=== PATIENT | female | born 1955 | race Caucasian/White ===

== ENCOUNTER 2024-06-23 16:45 | Emergency (ER) | payer MEDICARE, SELFPAY ==
[2024-06-23] VITALS (7 sets, daily range): BP systolic 104–128; BP diastolic 61–69; PULSE 78–87; RESP 14–27; TEMP 36.4; O2SAT 93–100
--- NOTE | ~2024-06-23 | CT_ITS ---
EXAMINATION: CTA chest PE abdomen pel DATE: 06/23/2024 20:14 INDICATION: Chest pain. Shortness of breath. TECHNIQUE: Computed tomography angiography (CTA) of the chest was performed with 100 mL Omnipaque-350 intravenous contrast timed to evaluate the pulmonary arteries. Coronal maximum intensity projection 3D-reconstructions were created by the technologist. Computed tomography (CT) of the abdomen and pelv is was performed with intravenous contrast. Automated exposure control and iterative reconstruction t echnique were employed. The dose-length product was 1483.20 mGy-cm. COMPARISON: None. FINDINGS: CTA chest: The lungs demonstrate mild atelectasis. No pleural effusion. The heart size is normal. The re are coronary artery calcifications. No pericardial effusion. There is no pulmonary embolus. There is a moderate-sized sliding hiatal hernia. There is severe cervical and thoracic spondylosis. CT abdomen and pelvis: There is diffuse hepatic steatosis. There are gallstones in the gallbladder, w hich is normal in size. There is a 14 mm cyst in the spleen. The pancreas and adrenal glands are norm al. There is a 2.0 cm heterogeneous mass in right kidney. There is a 6 mm cyst in left kidney. There is diverticulosis of the colon without evidence of diverticulitis. The appendix is normal. There are no pathologically enlarged lymph nodes. There is no free intraperitoneal fluid. There is moderate lum bar spondylosis. IMPRESSION: 1. No pulmonary embolus. 2. 2.0 cm heterogeneous mass in right kidney, most likely renal cell carcinoma. Abdomen CT without an d with contrast is recommended. 3. Diffuse hepatic steatosis. 4. Moderate-sized sliding hiatal hernia. Reviewed, dictated and finalized at location A. E REFINISHER IMPRESSION: 1. No pulmonary embolus. 2. 2.0 cm heterogeneous mass in right kidney, most likely renal cell carcinoma. Abdomen CT without and with contrast is recommended. 3. Diffuse hepatic steatosis. 4. Moderate-sized sliding hiatal hernia.
--- NOTE | ~2024-06-23 | XR_ITS ---
EXAMINATION: XR chest 2V DATE: 06/23/2024 17:48 INDICATION: Chest tightness. Shortness of breath. TECHNIQUE: Frontal and lateral views of the chest were obtained. COMPARISON: None. FINDINGS: There is mild scarring at the lung apices. There is mild atelectasis in left lower lung zon e. No pleural effusion or pneumothorax. The heart size is normal. IMPRESSION: 1. Mild scarring at the lung apices and mild atelectasis in left lower lung zone. Reviewed, dictated and finalized at location A. NT COORDINATOR IMPRESSION: 1. Mild scarring at the lung apices and mild atelectasis in left lower lung zon e.
--- NOTE | 2024-06-23 16:59 | ECG_ITS ---
Test Date: 2024-06-23 17:07:05 Measurements Intervals [place] Rate: 85 P: 57 AK: 167 QRS: 2 QRSD: 80 T: 41 QT: 376 QTc: 448 Interpretive Statements SINUS RHYTHM CANNOT R/O SEPTAL INFARCT, AGE INDETERMINATE CONSIDER INFERIOR INFARCT, AGE INDETERMINATE ABNORMAL ECG No previous ECG available for comparison Electronically Signed On 06-23-2024 19:11:57 ACCOUNTING MACHINE SERVICER by Amadeo Roman D.O.
--- NOTE | 2024-06-23 17:25 | ED_ITS ---
HPI - Chest Pain General Chief Complaint: Chest Pain Stated Complaint: dizziness Time Seen by Provider: 06/23/24 17:04 Source: patient Mode of arrival: EMS Limitations: no limitations History of Present Illness HPI narrative: This is a 69-year-old female that presents to the emergency department for an episode of chest pain. Reports she was seated at home. She started to feel substernal pressure, dizziness, heart racing. Reports her heart rate was elevated for EMS. She has history of SVT. She was not given any medications, but now heart rate is in the 80s and she is feeling much better. Reports shortness of breath which seems to be at her baseline due to history of asthma. Denies fever, cough, lower extremity edema. Patient reports she had a stress test last month which was without concerning findings Related Data Allergies Allergy/AdvReac Type Severity Reaction Status Date / Time No Known Allergies Allergy Verified 06/23/24 17:20 Review of Systems 2 Review of Systems: CONSTITUTIONAL: Denies fever ENT: Denies congestion CARDIOVASCULAR: Reports chest pain. Denies edema. RESPIRATORY: Reports dyspnea. Denies cough All systems reviewed & are unremarkable except as noted in HPI and below PMFSH Past Medical History Medical History (Updated 06/23/24 @ 22:08 by Quyen Hill PA-C) History of hyperlipidemia History of hypertension History of PSVT (paroxysmal supraventricular tachycardia) Social History Social History (Updated 06/23/24 @ 17:28 by Quyen Hill PA-C) Smoking status: Never smoker Exam 2 Narrative: GENERAL: Well-appearing, well-nourished, and in no acute distress. HEAD: Normocephalic, atraumatic. EYES: EOMI. NECK: Supple. No adenopathy or masses. No JVD CHEST: Clear to auscultation. No respiratory distress. No wheezes rales or rhonchi HEART: Regular rate and rhythm. No murmur heard. Normal peripheral pulses. EXTREMITIES: Normal range of motion. No edema. SKIN: Warm, dry, no rash. NEURO: No focal deficits. Alert and oriented x3. PSYCH: Normal mood and affect Course Vital Signs Vital signs: Vital Signs Temperature 97.6 F 06/23/24 16:48 Pulse Rate 84 06/23/24 16:48 Respiratory Rate 27 H 06/23/24 16:48 Blood Pressure 113/61 06/23/24 16:48 Pulse Oximetry 93 06/23/24 16:48 Oxygen Delivery Room Air 06/23/24 16:48 Temperature 97.6 F 06/23/24 16:48 Pulse Rate 83 06/23/24 19:03 Respiratory Rate 21 H 06/23/24 19:03 Blood Pressure 126/68 06/23/24 19:03 Pulse Oximetry 100 06/23/24 19:03 Oxygen Delivery Room Air 06/23/24 17:06 MDM - Chest Pain MDM Narrative Medical decision making narrative: Patient presents to the emergency department for an episode chest discomfort, heart racing. Heart rate was reportedly in the 160s upon EMS arrival which they believed was AFib with RVR. She was not given any medications. Upon arrival to the ER she was in normal sinus rhythm. She has remained in this throughout the entirety of her stay. Other vitals have also been stable. Cbc and metabolic panel without concerning findings. EKG without acute ST changes in her baseline and 3 hour troponin are negative. D-dimer was elevated, CTA of the chest obtained. No PE or acute cardiopulmonary abnormality. She does have a 2 cm mass in the right kidney, recommend further evaluation with CT abdomen and pelvis with and without. Her heart score is elevated, although I do feel her symptoms tonight were likely due to tachy arrhythmia. Once again patient has been in normal sinus rhythm throughout the entirety of her stay in the ER. She reports she had a stress test just last month that was negative for any ischemic changes. Patient was updated on her workup and agrees with plan of care. She is to follow up with her semiconductor wafers tester and primary doctor for further evaluation and management. She was given warnings to return to the ER Differential Diagnosis Differential diagnosis: Likely stable angina and other (Arrhythmia, PE) Lab Data Attestation: I reviewed the patient's lab results. 06/23/24 17:18 06/23/24 17:18 Labs: Lab Results 06/23/24 06/23/24 Range/Units 17:18 21:03 WBC 8.6 (4.5-10.0) K/mm3 RBC 5.23 (4.2-5.4) M/mm3 Hgb 14.9 (12.0-15.0) g/dL Hct 44.8 (37.0-47.0) % MCV 85.7 (80-100) fl MCH 28.5 (26-34) pg MCHC 33.3 (32-36) g/dl RDW 13.2 (11.5-14.5) % Plt Count 298 (150-375) k/mm3 MPV 10.0 (7.4-10.4) fl Immature Gran % (Auto) 0.2 (0-0.5) % Neut % (Auto) 61.4 (45.5-73.1) % Lymph % (Auto) 26.6 (18.3-44.2) % [place] % (Auto) 7.0 (2.6-8.5) % Eos % (Auto) 3.9 (0-4.4) % Baso % (Auto) 0.9 (0.2-1.2) % Lymph # (Auto) 2.28 (0.9-3.2) K/mm3 [place] # (Auto) 0.6 (0.1-0.6) K/mm3 Eos # (Auto) 0.3 (0-0.3) K/mm3 Baso # (Auto) 0.1 (0.0-0.1) K/mm3 Abs Immat Gran (auto) 0.02 (0.00-0.031) K/mm3 Absolute Neuts (auto) 5.3 (1.3-6.7) K/mm3 Absolute Nucleated RBC 0.000 (0.0-0.012) K/mm3 Nucleated RBC % 0.0 (0.0-0.2) % PT 12.4 (11.1-14.7) Seconds INR 0.9 APTT 25.3 (22.3-36.8) Seconds D-Dimer 0.49 H (<0.48) ug/mL Sodium 139 (137-145) mmol/L Potassium 3.8 (3.4-5.0) mmol/L Chloride 104 (98-107) mmol/L Carbon Dioxide 23 (22-30) mmol/L Anion Gap 12 (4-12) mmol/L BUN 16 (7-17) mg/dL Creatinine 0.56 L (0.7-1.0) mg/dL Estim Creat Clear Calc 80 ml/min Estimated GFR > 60 (59 - ) Glucose 100 (65-110) mg/dL Calcium 9.2 (8.4-10.2) mg/dL Total Bilirubin 0.6 (0.2-1.3) mg/dL AST 25 (14-36) U/L ALT 30 (6-35) U/L Alkaline Phosphatase 89 (38-126) U/L Troponin I < 0.012 < 0.012 (0.000-0.034) ng/mL Total Protein 7.0 (6.3-8.2) g/dL Albumin 4.0 (3.5-5.1) g/dL Lipase 74 (23-300) U/L Imaging Data Radiologist's impression: ITS Impressions Chest X-Ray 06/23/24 17:48 IMPRESSION: 1. Mild scarring at the lung apices and mild atelectasis in left lower lung zone. Chest/Abdomen/Pelvis CTA 06/23/24 20:15 IMPRESSION: 1. No pulmonary embolus. 2. 2.0 cm heterogeneous mass in right kidney, most likely renal cell carcinoma. Abdomen CT without and with contrast is recommended. 3. Diffuse hepatic steatosis. 4. Moderate-sized sliding hiatal hernia. ECG Data EKG #1: ECG completion date: 06/23/24 EKG Interpretation: normal rate, sinus rhythm, no ST changes and normal QT Critical Care Time Critical Care Time Critical Care Time: No Discharge Plan Discharge Clinical Impression: Kidney mass Chest pain Qualifiers: Chest pain type: unspecified Qualified Code(s): R07.9 - Chest pain, unspecified Patient Disposition: Home, Self-Care Condition: Improved Instructions: Chest Pain (ED) Additional Instructions: Return to the emergency department if you experience fever, chest pain, shortness of breath, your heart is racing, you pass out, or any other symptoms that are concerning to you. Your blood work, EKG and imaging were largely re-assuring today. We did incidentally find a mass on your right kidney. The radiologist is recommending further evaluation with a CT abdomen pelvis without and with contrast Follow up with your primary care doctor and semiconductor wafers tester for further evaluation/management Patient Language: Welsh Follow-up/Referrals: PHYSICIAN NOT ON STAFF,NONSTAFF [Non-Staff] - Quality HEART score for chest pain patients History: slightly suspicious ECG: normal Age: > or = to 65 years Risk factors: > or = to 3 risk factors of atherosclerotic disease Troponin: < or = to 1x normal limit Heart score: 4
[2024-06-23 17:27] LABS: Basophils Absolute Auto 0.1 K/mm3 (0.0-0.1); Basophils Percent Auto 0.9 % (0.2-1.2); Eosinophils Absolute Auto 0.3 K/mm3 (0-0.3); Eosinophils Percent Auto 3.9 % (0-4.4); Hematocrit 44.8 % (37.0-47.0); Hemoglobin 14.9 g/dL (12.0-15.0); Immature Granulocyte Absolute 0.02 K/mm3 (0.00-0.031); Immature Granulocyte Percent A 0.2 % (0-0.5); Lymphocytes Absolute Auto 2.28 K/mm3 (0.9-3.2); Lymphocytes Percent Auto 26.6 % (18.3-44.2); Mean Corpuscular HGB Conc 33.3 g/dl (32-36); Mean Corpuscular Hemoglobin 28.5 pg (26-34); Mean Corpuscular Volume 85.7 fl (80-100); Monocytes Absolute Auto 0.6 K/mm3 (0.1-0.6); Neutrophils Absolute Auto 5.3 K/mm3 (1.3-6.7); Neutrophils Percent Auto 61.4 % (45.5-73.1); Platelet Count Result 298 k/mm3 (150-375); Red Blood Count 5.23 M/mm3 (4.2-5.4); Red Cell Distribution Width 13.2 % (11.5-14.5); White Blood Count 8.6 K/mm3 (4.5-10.0)
--- OUTSIDE RECORDS SUMMARY | 2024-06-23 17:35 | XMS_ITS | Data Portability ---
Author Organization [facility], [address] ([place]) Address [address]th [place] [address] Assessment Encounter Date Assessment Date Assessment LastModified by Organization Details LastModified Time 10/06/2023 10/06/2023 The patient returned for a hearing aid check appointment; end of trial period. She reports noticeable benefit with her hearing aids. She did forget them at home today. However, I reviewed how to replace wax filters and she was able to do so on her own with a demo hearing aid. She will return in 4 months or sooner if needed. [email or web address] Not available 10/06/2023 14:21:59 11/12/2023 11/12/2023 The patient returns for hearing aid check appointment. I reviewed how to replace wax filters and she was able to do so on her own. She was given her own packet. She will return in 4 months or sooner if needed. [email or web address] Not available 11/12/2023 15:52:25 03/22/2024 03/22/2024 Jennifer has trivial remote smoking history and BMI ~37 kg/m She is currently undergoing a thorough workup by her new general matcher for her shortness of breath. Continue Breo 200. Albuterol for rescue Montelukast 10 mg to use at nighttime. Regular exercise and weight loss will help improve the severity of her sleep apnea. Decrease CPAP to 6 CWP for comfort. She will be following with her new general matcher in [place]. She will call us if she needs anything. [email or web address] Not available 03/22/2024 10:08:42 Plan of Treatment Reminders Order Date Submit Date Provider Last Modified By Organization Details Last Modified Time Details Appointments None recorded. Lab None recorded. Referral None recorded. Procedures None recorded. Surgeries None recorded. Imaging None recorded. Medication Orders Breo Ellipta 200 mcg-25 mcg/dose powder for inhalation 2023 024 [id number], [address] [place], [place], [id number], 09:26:45 Patient TargetsNo targets recorded. Patient InstructionsNo instructions recorded. Reason for Referral None Reported. Results Created Date Observation Date Name Description Value Unit Range Abnormal Flag Note LastModifiedBy Organization Detail LastModifiedTime 09/15/19 24 09/16/2023 surgi azalia patho logy study tissue exam biopsy [facility] [address] [address] Ph. Joe Lara MD, PhD, Medic al Direc tor REGINA WALL MD Patie nt: DANETTE OLIVARES e ID: [id number] Repor t Statu s: Final :1 1954 Case #: [id number] Age: 68 Y Gende r: F Date Colle cted: 09/14 MRN # : [id number] Date Recei tashia: 09/14 Repor barbi Date: 09/15 FINAL DIAGN OSIS: Colon , ascen ding polyp s, biops y : - Fragm ents of tubul ar adeno ma Elect neris tabares Verif ied by Lizbet Gong MD Elect neris phipps 09/15 15:00 SPECI MEN SOURC E: Colon , ascen ding polyp s, biops y GROSS DESCR IPTIO N: The speci men conta iner( s) and requi sitio n have the same patie nt name. Recei tashia in 10% neutr al buffe red forma sean for forma sean-f ixed paraf fin-e mbedd ed secti ons label ed A, ascen ding colon polyp s are two fragm ents of yello w-deluna soft tissu e that are 0.4 and 0.9 cm in great est dimen abel. The speci men is entir cherry submi tted for histo logic study in one casse tte. CLINI [facility] INFOR BERNICE N: Histo ry of colon polyp s. Not Available Oh Only - Oh Laboratory [facility] [address], [address], 09/16/2023 16:02:23 12/15/19 24 06/08/2022 imagi ng/di agnos tic resul t No observ ation record ed. Not Available 12/15/2023 10:28:11 12/15/19 24 07/13/2022 imagi ng/di agnos tic resul t No observ ation record ed. Not Available 12/15/2023 10:28:15 12/15/19 24 07/13/2022 imagi ng/di agnos tic resul t No observ ation record ed. Not Available 12/15/2023 10:28:17 12/15/19 24 08/12/2022 imagi ng/di agnos tic resul t No observ ation record ed. Not Available 12/15/2023 10:28:18 12/15/19 24 10/13/2022 imagi ng/di agnos tic resul t No observ ation record ed. Not Available 12/15/2023 10:28:18 12/15/19 24 10/13/2022 imagi ng/di agnos tic resul t No observ ation record ed. Not Available 12/15/2023 10:28:20 01/18/20 24 09/14/2022 imagi ng/di agnos tic resul t No observ ation record ed. Not Available 01/18/2024 00:00:54 02/29/20 24 07/22/2023 imagi ng/di agnos tic resul t No observ ation record ed. [email or web address] Not Available 21:14:01 02/29/20 24 07/25/2023 imagi ng/di agnos tic resul t No observ [facility] record ed. [email or web address] Not Available 21:14:03 Result Notes None recorded. Problems Name Problem SNOMED Code Status Onset Date Resolution Date Notes Provider Name and Address Organization Details Recorded Time Environment al allergy 936969035 Active 2023 Meenu Tobinty null, [facility] 4 08:47:09 Hyperlipide peng 28216737 Active 2023 [facility] 09:14:33 Obstructive sleep apnea syndrome 18649076 Active 2023 Tory Alas APRN, [employer] [address] [place] [address], [phone], [facility] 4 09:21:54 Asthma 618040982 Active 2023 Melinda Babb [facility] 4 11:31:48 Daytime somnolence 629408407134 Active 2023 Tory Alas APRN, [employer] [address] [place] [address], [phone], [facility] 4 09:21:58 Mild intermitten t asthma 124115805 Active 2023 Tory Alas APRN, [employer] [address] [place] [address], [phone], [facility] 4 09:22:02 Body mass index 30+ - obesity 673795968 Active 2023 Carson luna [facility] 4 12:21:26 Sensorineur al hearing loss of bilateral ears 782647965 Active 2023 [facility] 4 22:57:37 Problem Notes None recorded. Procedures Surgical History None recorded. Imaging Results Imaging Date Name Status LastModified by Organ [facility] Details LastModified Time 06/08/2022 imaging/diag nostic result completed Information not available 12/15/2023 10:28:11 07/13/2022 imaging/diag nostic result completed Information not available 12/15/2023 10:28:15 07/13/2022 imaging/diag nostic result completed Information not available 12/15/2023 10:28:17 08/12/2022 imaging/diag nostic result completed Information not available 12/15/2023 10:28:18 10/13/2022 imaging/diag nostic result completed Information not available 12/15/2023 10:28:18 10/13/2022 imaging/diag nostic result completed Information not available 12/15/2023 10:28:20 09/14/2022 imaging/diag nostic result completed Information not available 01/18/2024 00:00:54 07/22/2023 imaging/diag nostic result completed Information not available 02/29/2024 21:14:01 07/25/2023 imaging/diag nostic result completed Information not available 02/29/2024 21:14:03 Procedure Notes None recorded. Medical Equipment None Reported. Allergies Allergen ID Allergen Name Allergen Category Reaction Reaction Severity Criticality Documentation Date Start Date Code Code System Note Provider Name and Address Organization Details Recorded Time 7228233 Streptoco ccus pneumonia e type 1 capsular polysacch aride antigen medicatio n Not available Not available Not available 06/02/20232014 81459 0 RxNorm Not Available Not Available Not Available 3098174 Prevnar 13 medicatio n Not available Not available Not available 06/02/20232018 35377 1 RxNorm Not Available Not Available Not Available Medications Name Sig Start Date Stop Date Status Note LastModified by Organization Details LastModified Time atorvastatin 80 mg tablet Take 1 tablet every day by oral route for 90 days. active Not Available Not Available No t Available clonidine HCl 0.1 mg tablet TAKE 1/2 TABLET BY MOUTH AT BEDTIME active Not Available Not Available No t Available ibuprofen 800 mg tablet TAKE 1 TABLET BY MOUTH EVERY 8 HOURS WITH FOOD NEEDED active Not Available Not Available No t Available Claritin 10 mg tablet Take 1 tablet every day by oral route. active Not Available Not Available No t Available famotidine 40 mg tablet TAKE 1 TABLET BY MOUTH AT BEDTIME active Not Available Not Available No t Available aspirin 81 mg tablet,delay ed release take 1 tablet by mouth once daily 2023 active Not Available Not Available Not Avai lable triamcinolon e acetonide 0.1 % topical ointment APPLY TOPICALLY TO THE AFFECTED AREA TWICE DAILY FOR 7 DAYS active Not Available Not Available No t Available montelukast 10 mg tablet active Not Available Not Available Not Available albuterol sulfate HFA 90 mcg/actuatio n aerosol inhaler Inhale 2 puffs every 4 hours by inhalation route as needed. active Not Available Not Available No t Available escitalopram 20 mg tablet TAKE 2 TABLETS BY MOUTH DAILY active Not Available Not Available Not Available Fish Oil capsule Take by oral route. active Not Available Not Available Not Available aripiprazole 5 mg tablet TAKE 1 TABLET BY MOUTH DAILY active Not Available Not Available Not Available fenofibrate micronized 48 mg tablet Take 1 tablet every day by oral route. active Not Available Not Available No t Available Calcium 600 + D(3) 600 mg-5 mcg (200 unit) tablet Take 1 tablet every day by oral route. active Not Available Not Available No t Available fenofibrate nanocrystall ized 48 mg tablet take 1 tablet by mouth once daily active Not Available Not Available No t Available omeprazole 20 mg tablet,delay ed release Take 2 tablets every day by oral route. active Not Available Not Available No t Available B-12 DOTS 500 mcg tablet Take by oral route. active Not Available Not Available Not Available Zyrtec 10 mg capsule Take 1 capsule every day by oral route. active Not Available Not Available No t Available sodium,potas sium,mag sulfates 17.5 gram-3.13 gram-1.6 gram oral soln MIX AND DRINK DIRECTED active Not Available Not Available No t Available Breo Ellipta 200 mcg-25 mcg/dose powder for inhalation Inhale 1 puff every day by inhalation route for 30 days. 2023 active Not Available Not Available Not Avai lable Flonase Sensimist 27.5 mcg/actuatio n nasal spray,suspen abel Take 2 sprays every day by nasal route. active Not Available Not Available No t Available Vitals Date Recorded Heart rate Heart rate Body mass index (BMI) Body mass index (BMI) Body mass index (BMI) Respiratory rate Respiratory rate Body weight Body weight Body weight Body height Body height Body height Body temperature Body temperature Oxygen saturation Oxygen saturation in Arterial blood by Pulse oximetry Oxygen saturation Oxygen saturation in Arterial blood by Pulse oximetry Systolic blood pressure Diastolic blood pressure Systolic blood pressure Diastolic blood pressure Provider Name and Address Organization Details Last Updated DateTime 83 /min 83 /min 36.55 kg/m2 38.37 kg/m2 38.37 kg/m2 16 /min 16 /min 18503.5 503 g 12782.2 1897 g 77345.5 503 g 149.86 cm 149.86 cm 149.86 cm 96.6 [degF] 96.6 [degF] 97 % 97 % 97 % 97 % 128 mm[Hg] 70 mm[Hg] 128 mm[Hg] 70 mm[Hg] Not Available [facility] 06:23:25 Date Recorded Body mass index (BMI) Body weight Systolic blood pressure Diastolic blood pressure Provider Name and Address Organization Details Last Updated DateTime 10/13/2023 38.17 kg/m2 34792.957 93 g 116 mm[Hg] 78 mm[Hg] Not Available Critical [facility] hospital 02/09/2024 06:23:25 Social History None recorded. Functional Status None recorded. Mental Status None recorded. Family History Nothing Reported. Medical History No medical history recorded. Gynecological HistoryNo gynecological history recorded. Obstetrics History GPAL:G 0 P 0 0 0 0 Past Encounters Encounter ID Performer Location Encounter Start Date Encounter Closed Date Diagnosis/Indication Diagnosis SNOMED-CT Code Diagnosis ICD10 Code Diagnosis Note [id number] Joe Nava MD [facility] S [address] [place] [phone] 09/15/2023 09:20:05 11/12/2023 04:02:33 [id number] Nirmala Izaguirre [facility] [address] [facility]4th [place] [address] 10/06/2023 13:47:38 10/06/2023 14:13:04 Sensorineural hearing loss of bilateral ears 030045384 H90.3 [id number] Nirmala Izaguirre [facility] [address] [place] [address] 11/12/2023 15:13:56 11/12/2023 16:10:12 Sensorineural hearing loss of bilateral ears 793537382 H90.3 [id number] Tory Alas APRN, BUSINESS SUPPORT [facility] [address] [place] [address] 03/22/2024 09:20:00 03/22/2024 11:42:56 Obstructive sleep apnea syndrome 95392111 G47.33 Daytime somnolence 75451 25728 00 R40.0 Mild inter mittent asthma 507736813 J45.20 Body mass index 30+ - obesity 085543488 E66.9 Z68.37 Health Concerns Section Related Observation LastModified by Organization Detai ls LastModified Time None Recorded Concern Status LastModified by Organization Details LastModified Time None Recorded Advance Directives Directive None Recorded Payers Encounter Date Sequence Insurance Name Policy Number Policy Tyson Covered Member ID Tyson Member ID Guarantor Name 09/15/2023 1 [employer] (MEDICARE REPLACEMENT PPO) [id number] 1 Danette Santiago [place]ves [id number] Danette Santiago [place] 10/06/2023 1 [employer] (MEDICARE REPLACEMENT PPO) [id number] Danette Santiago Germain [id number] Danette Santiago [place] 11/12/2023 1 [employer] (MEDICARE REPLACEMENT PPO) [id number] Danette Santiago [place]ves [id number] Danette Groves 03/22/2024 1 [employer] (MEDICARE REPLACEMENT PPO) [id number] 1 Danette Sánchezews [id number] Danette Groves Notes Date Note Type Note Provider Name and Address Organization Details Recorded Time 09/15/2023 text/html [facility] PRE-ANEST HETIC EVALUATIONReported bypatient.Reason for Visit:PROPOSED PROCEDURE: Colonoscopy; SURGEON: Shelia; PREOP DIAGNOSIS: Polyp of colon Review of Systems General:Exercise tolerance moderate; Denies SOB, PARRY, PND; Denies chest pain or chest tightness; Obesity Cardiac:Hyperlipidemia; Mild Coronary artery disease ; Negative stress test (Nuc stress perf 04/23 perf scan); Cardiac Testing:[facility] 06/25 mild CAD / normal EF Pulmonary:Obstructive sleep apnea with CPAP at HS GI:Dysphagia Pysch:Anxiety Prior Anesthetic Complication:no history of anesthesia complications Family Anesthetic Hx:no history of anesthesia complications Testing/ResultsBMP/CMP Date: 07/16/2423; BUN results: 14; Creatine results: .7; Potassium results: 4.4 Physical Exam: AirwayMP II; high arched palate / small mouth TeethWNL NeckWNL CardiovascularRegular rate and rhythm RespiratoryClear to auscultation bilaterally GastrointestinalNPO status >6 hrs solids, >2 hrs clear liquids Vital Signs:Vital signs reviewed. Please refer to nursing preop note for values Assessment:ASA PS: II Plan:MAC Discussion:I have discussed with the patient the anesthetic plan, alternatives, pertinent risks, and complications; including but not limited to PONV, dental injury, sore throat, TX, stroke, etc. All questions were answered. Patient/patient's guardian verbalize(s) understanding and agree(s) to proceed. Taylor Ahn [facility] 09/15/2023 10:56:25 03/22/2024 text/html Danette is here to day for follow-up of obstructive sleep apnea and asthma. She recently moved down to [place]. She is going to be following with a new general matcher who will be managing her sleep apnea and asthma. She is needing refills on Breo. She is currently undergoing a workup for worsening shortness of breath. She denies any chest pain or palpitations. No shortness of breath at rest. Her shortness of breath is with exertional dyspnea. She would like her CPAP pressure to be decreased.PMH and PSH: Obesity, hiatal hernia, generalized anxiety disorder, depression, Schatzki's ring, , D&C and ORIF of forearm fracture. Left heart catheterization.Family history: Father had brain cancer, mother had asthma, family history of colon cancer and hypertension.Social history: Trivial remote smoking history. and lives independently. She has 1 adult daughter. Tory Alas APRN, [employer] [address] [place] [address], [phone], [place] [facility] 03/23/2024 11:24:56 OBGyn Episode No OBEpisode recorded.
--- OUTSIDE RECORDS SUMMARY | 2024-06-23 17:35 | XMS_ITS | Clinical Summary ---
Author Organization [facility] Address [facility] [place] [address] Care Team Providers Care Lap Grinder Name Role Phone Ramona Cruz MD Primary Care Provider [phone] Julian Delvalle MD Unavailable [phone] Tyler Phillips MD Unavailable [phone] Allergies Active Allergy Reactions Criticality Noted Date Comments Pneumococcal Vaccine Hives 02/14/2024 Medications omega-3 fatty acid (FISH OIL) 500 MG capsule Take 1 capsule (500 mg total) by mouth daily. Active Cyanocobalamin (VITAMIN B-12 OR) Take 1 chewable tablet by mouth daily. Active vitamin D3, cholecalciferol, 125 mcg capsule Take 1 mcg by mouth daily. Active ASPIRIN LOW DOSE 81 MG tablet Take 1 tablet (81 mg total) by mouth daily. Active furosemide (LASIX) 20 MG tablet Take 1 tablet (20 mg total) by mouth daily. 30 tablet 2 4 Active atorvastatin (LIPITOR) 80 MG tabletIndications:M ixed hyperlipidemia Take 1 tablet (80 mg total) by mouth daily. 90 tablet 3 4 Active cloNIDine (CATAPRES) 0.1 MG tabletIndications:P rimary hypertension Take 1 tablet (0.1 mg total) by mouth nightly at bedtime. Patient takes 1/2 tablet 90 tablet 3 4 Active fenofibrate (TRICOR) 48 MG tabletIndications:M ixed hyperlipidemia Take 1 tablet (48 mg total) by mouth daily. 90 tablet 1 4 Active ARIPiprazole (ABILIFY) 5 MG tabletIndications:R ecurrent major depressive disorder, in full remission (CMS/HCC) Take 1 tablet (5 mg total) by mouth daily. 90 tablet 3 4 Active escitalopram (LEXAPRO) 20 MG tabletIndications:R ecurrent major depressive disorder, in full remission (CMS/HCC) Take 1 tablet (20 mg total) by mouth daily. 90 tablet 3 4 Active famotidine (PEPCID) 40 MG tabletIndications:G astroesophageal reflux disease, unspecified whether esophagitis present Take 1 tablet (40 mg total) by mouth nightly at bedtime. 90 tablet 3 4 Active BREO ELLIPTA 200-25 MCG/ACT inhalerIndications: Mild intermittent asthma, unspecified whether complicated ([facility]/HCC) Inhale 1 puff into the lungs daily. 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 04/10/2024 SVT (supraventricular tachycardia) ([facility]/HCC HHS/ HCC) 04/05/2024 Daytime somnolence 03/21/2024 Mild intermittent asthma ([facility]/HCC) 03/21/2024 Asthma ([facility]/HCC) 03/20/2024 Hyperlipidemia 01/11/2024 Obstructive sleep apnea syndrome 01/11/2024 Environmental allergies 12/20/2023 Sensorineural hearing loss (SNHL) of both ears 0 09/02/2023 Encounters Date Type Department Care Team Description 06/07/2024 Telephone [facility] Medical Group Multispecialty Care - [facility] [address], [address] [place] [address] Julian Delvalle MD Results 05/29/2024 7:43 PM POULTRY TENDER - 05/29/2024 11:59 PM [facility] Hospital Encounter [facility] [address] [place] [address] Julian Delvalle MD Obstructive Sleep Apnea Discharge Disposition: Home or Self Care (Routine Discharge) 05/29/2024 3:15 PM POULTRY TENDER Office Visit [facility] [address] [place] [address] yTler Phillips MD Shortness Of Breath (1mo) 05/29/2024 Travel 05/19/2024 Telephone [facility] Multispecialty Care - [facility] [address] [place] [phone] Julian Delvalle MD Results 05/18/2024 MyChart [facility] [address] [place] [phone] Julian Delvalle MD Pulmonary function test 05/15/2024 3:36 PM POULTRY TENDER - 05/15/2024 11:59 PM POULTRY TENDER Hospital Encounter [facility] Respiratory Therapy [place] [address] Julian Delvalle MD Discharge Disposition: Home or Self Care (Routine Discharge) 05/15/2024 Scan What They Like HEALTH INFO SRVCS Scanned, [facility] PFT (SCAN) 05/15/2024 Travel 05/01/2024 Telephone [facility], [address] [place] [address] Tammy Grady FNP Results 2024 9:53 AM POULTRY TENDER - 2024 11:59 PM POULTRY TENDER Hospital Encounter [facility] [place] [address] Tammy Grady FNP Discharge Disposition: Home or Self Care (Routine Discharge) 2024 7:28 AM POULTRY TENDER - 2024 9:52 AM POULTRY TENDER Hospital Encounter [facility] Nuclear Medicine [place] [address] Tammy Grady FNP Discharge Disposition: Home or Self Care (Routine Discharge) 2024 Travel 04/17/2024 11:20 AM POULTRY TENDER Office Visit [facility] Family Medicine - [place] [address], [address] [place] [phone] Ramona Cruz MD TCM (TCM follow up from [facility] on 04/05/2024 for SVT.) 04/17/2024 9:00 AM POULTRY TENDER Office Visit [facility] [facility], [address] [address] Ariadne Santiago MD Monteleone, Amanda, PA-C Supraventricular Tachycardia (Discuss ablation) 04/17/2024 Abstract [facility] [facility], [address] [address] Nikia Ryder CMA 04/17/2024 Travel 04/12/2024 10:15 AM POULTRY TENDER Office Visit [facility] [facility], [address] [address] Tammy Grady FNP Shortness Of Breath ; Follow Up 04/12/2024 Travel 04/12/2024 Telephone [facility], [address] [address] Tammy Grady FNP Information ([place], [place]) 04/07/2024 Patient Outreach [facility] Family Medicine - [place] [address], [address] [place] [phone] Carmelita Acosta, ANÍBAL TCM ([facility] 04/04-04/05) 04/05/2024 Telephone [facility] Family Medicine - [place] [address], [address] [place] [address] Ramona Cruz MD TCM 04/05/2024 Patient Outreach [facility] Family Medicine - [place] [address], [address] [place] [address] Tomasa Rodriguez, RN Hospital Follow Up 04/04/2024 10:45 PM POULTRY TENDER - 04/05/2024 12:35 PM POULTRY TENDER Emergency [facility] [place] [address] Vianey Blunt MD Elayyan, Ibrahim B, MD Duenas, Vincent J, MD Chest Pain; Shortness Of Breath (/) Discharge Disposition: Home or Self Care (Routine Discharge) 04/04/2024 Scan [employer] SRVCS Scanned, [facility] 04/04/2024 Travel 04/04/2024 Telephone [facility] Multispecialty Care - [facility] [address] [facility] [place] [phone] Julian Delvalle MD Results 03/28/2024 [facility]phone [facility] [address] [place] [phone] Julian Delvalle MD Results 03/24/2024 Telephone [facility], [address] [place] [address] Tammy Grady FNP Results 03/23/2024 3:52 PM POULTRY TENDER - 03/23/2024 11:59 PM POULTRY TENDER Hospital Encounter [facility] [place] [address] Tyler Phillips MD Discharge Disposition: Home or Self Care (Routine Discharge) 03/23/2024 3:51 PM POULTRY TENDER Hospital Encounter [facility] [address] Julian Delvalle MD Discharge Disposition: Home or Self Care (Routine Discharge) 03/23/2024 9:59 AM POULTRY TENDER - 03/23/2024 3:50 PM POULTRY TENDER Hospital Encounter [facility] [place] [address] Julian Delvalle MD Discharge Disposition: Home or Self Care (Routine Discharge) 03/23/2024 Travel from Last 3 Months Immunizations Name Administration Dates Next Due Abrysvo Respiratory Syncytia l Virus (RSV) 0.5 mL, PF 01/18/2023 Fluzone High Dose (IIV, trivalent, 0.5mL) 2023,01/06/2023 Influenza Adult (Generic) 02/20/2022 MODERNA COVID-19 BIVALENT (1 2+), MRNA, LNP-S, PF 01/22/2022 PFIZER COVID-19 (12+) MRNA, LNP-S, PF, ENDER-SUCROSE, 30 MCG/0.3 ML (COMIRNATY) 01/21/2024,07/22/2023,01/18/2023 PFIZER COVID-19 (ORIGINAL FO RMULATION, PURPLE CAP) mRNA, LNP-S, PF, 30 MCG/0.3 ML DOSE 03/05/2021,07/31/2020,07/10/2020 Pneumococcal (Prevnar 13) 04/02/2015 Shingrix 03/18/2023,01/18/2023 Tdap (Generic) 10/30/2022,04/02/2015 Family History Medical History Relation Comments Depression Brother Cancer Father Vision loss Father Stroke Maternal Grandfather Arthritis Mother Asthma Mother Heart Disease Mother Miscarriages / Stillbirths Mother Vision loss Mother Relation Status Comments Brother Father Maternal Grandfather Mother Social History Tobacco Use Types Packs/Day Years Used Date Smoking Tobacco: Former Cigarettes Q uit: 05/03/1987 Passive Smoke Exposure: Past Tobacco Cessation:Counseling Given: Not Answered Alcohol Use Standard Drinks/Week Comments Not Currently 0 (1 standard drink = 0.6 oz pur e alcohol) [facility] Utilities Answer Date Recorded In the past 12 months has th e electric, gas, oil, or water company threatened to shut off services in your home? No 04/05/2024 Humiliation, Afraid, Rape, and Kick questionnair e Answer Date Recorded Within the last year, have y ou been afraid of your partner or ex-partner? No 04/05/2024 Within the last year, have y ou been humiliated or emotionally abused in other ways by your partner or ex-partner? No Within the last year, have y ou been kicked, hit, slapped, or otherwise physically hurt by your partner or ex-partner? No 04/05/2024 Within the last year, have y ou been raped or forced to have any kind of sexual activity by your partner or ex-partner? No 04/05/2024 Overall Financial Resource Strain (CARDIA) Answe r Date Recorded How hard is it for you to pa y for the very basics like food, housing, medical care, and heating? Not hard at all 04/05/2024 PHQ-2 Answer Date Recorded Patient Health Questionnaire-2 Score 0 02/14/2024 Hunger Vital Sign Answer Date Recorded Within the past 12 months, y ou worried that your food would run out before you got the money to buy more. Never true 04/05/20 24 Within the past 12 months, t he food you bought just didn't last and you didn't have money to get more. Never true 04/05/2024 PRAPARE - Transportation Answer Date Re corded In the past 12 months, has l ack of transportation kept you from medical appointments or from getting medications? No 08/2023 In the past 12 months, has l ack of transportation kept you from meetings, work, or from getting things needed for daily living? No 04/05/2024 Housing Stability Vital Sign Answer Shade e Recorded In the last 12 months, was t here a time when you were not able to pay the mortgage or rent on time? No 04/05/2024 In the past 12 months, how m any times have you moved where you were living? 0 04/05/2024 At any time in the past 12 m [facility], were you homeless or living in a longterm (including now)? No 04/05/2024 Comments No Sex and Gender Information Value Date Recorded Sex Assigned at Female 05/29/2024 7:43 PM POULTRY TENDER Legal Sex Female 1:38 PM CDT Gender Identity Not on file Sexual Orientation Not on file Last Filed Vital Signs Vital Sign Reading Time Taken Comments Blood Pressure 136/72 05/29/2024 3:08 PM POULTRY TENDER Pulse 93 05/29/2024 3:08 PM POULTRY TENDER Temperature 36.9 C (98.4 F) 04/17/2024 11:52 AM POULTRY TENDER Respiratory Rate 16 04/17/2024 11:52 AM POULTRY TENDER Oxygen Saturation 93% 05/29/2024 3:08 PM POULTRY TENDER Inhaled Oxygen Concentration - - Weight 86.3 kg (190 lb 3.2 oz) 05/29/2024 3:08 P M POULTRY TENDER Height 152.4 cm (5') 05/29/2024 3:08 PM POULTRY TENDER Body Mass Index 37.15 05/29/2024 3:08 PM POULTRY TENDER Plan of Treatment Upcoming Encounters Date Type Department Care Team (Late st Contact Info) Description 07/14/2024 10:00 AM CDT Office Visit [facility] Medical Group Multispecialty Care - [facility] [address] [place] [phone] Julian Delvalle MD [address] [facility] [address] [place] [address] 07/21/2024 11:20 AM CDT Office Visit [facility] Medical [facility] Family Medicine - [place] [facility] [address] [facility] [address], [address] [place] [phone] Ramona Cruz MD [address] [place] [address] 10/23/2024 9:45 AM CDT Office Visit [facility] [address] [facility], [address] [place] [address] Ariadne Santiago MD [address] [facility]. [address] [place] [address] 11/27/2024 11:00 AM CDT Office Visit [facility] [address] [place] [address] Tyler Phillips MD [address] [facility] [place] [address] Health Maintenance Due Date Last Done Comments Colorectal Cancer Screening Colonoscopy (10 Years) 1955 Hepatitis C 1972 Mammogram Screening 1994 Annual Medicare Wellness Visit 2019 Dexa Scan (General) 2019 PHQ-2 (Physician [place]) 05/03/2024 02/14/2024 DTaP, Tdap and Td Vaccines (3 - Td or Tdap) 10/30/2032 10/30/2022, 04/02/2015 RSV Immunization or 60+ Years Completed 01/18/2023 Zoster Vaccines Completed 03/18/2023, 01/18/2023 COVID-19 Vaccine Completed 01/21/2024, , 01/18/2023, Additional history exists Influenza Adult Completed 01/21/2024, 10/2022, 02/20/2022 Meningococcal B Vaccine Aged Out No l onger eligible based on patient's age to complete this topic Meningococcal Vaccine Aged Out No [facility] eligible based on patient's age to complete this topic RSV Immunizations Under 20 Months Aged Out No longer eligible based on patient's age to complete this topic Goals Goal Patient Goal Type Associated Problems Recent Progress Patient-Stated? Author Health - patient able to perform ADLs independently Lifestyle Randal Glover, supervisor patching Procedure Name Priority Date/Time Associated Diagnosis Comments POLYSOMNOGRAPHY 4 OR MORE PARAMETERS WITH CPAP Routine 05/29/2024 8:00 PM POULTRY TENDER KARMA (obstructive sleep apnea) HOME O2 EVAL Routine 05/19/2024 10:41 AM POULTRY TENDER Mild intermittent asthma without complication (HHS/HCC) PULMONARY FUNCTION TEST Routine 05/15/19 4:00 PM POULTRY TENDER Dyspnea on exertion Abnormal CT of the chest PFT GENERIC (SCAN ORDER) 05/15/2024 LIPID PANEL Routine 2024 10:03 AM POULTRY TENDER SOB (shortness of breath) Coronary artery calcification PARRY (dyspnea on exertion) Obesity, Class II, BMI 35-39.9 Dyslipidemia Uncomplicated asthma, unspecified asthma severity, unspecified whether persistent (HHS/HCC) Abnormal CT of the chest Coronary artery disease involving chilkat coronary artery of chilkat heart, unspecified whether angina present BASIC METABOLIC PANEL Routine 2024 10:03 AM POULTRY TENDER SOB (shortness of breath) NM EXER NUC STRESS TEST 1 DAY W TRACING Routine 2024 9:23 AM POULTRY TENDER SOB (shortness of breath) Coronary artery calcification PARRY (dyspnea on exertion) CARDIOLOGY STRESS TEST ONLY, EXERCISE Routine 2024 7:32 AM POULTRY TENDER SOB (shortness of breath) Coronary artery calcification PARRY (dyspnea on exertion) Hyperlipidemia Obstructive sleep apnea syndrome SVT (supraventricular tachycardia) (CMS/HCC HHS/HCC) Coronary artery disease involving chilkat coronary artery of chilkat heart with angina pectoris (CMS/HCC) CTA CHEST PE PROTOCOL TANJA 04/05/2024 9:33 AM POULTRY TENDER TROPONIN, QUANT Routine 04/05/2024 7:11 AM POULTRY TENDER CBC W/DIFF AUTOMATED Routine 04/05/2024 7:11 AM POULTRY TENDER COMPREHENSIVE METABOLIC PANEL Routine 04/05/2024 7:11 AM POULTRY TENDER MAGNESIUM Routine 04/05/2024 7:11 AM POULTRY TENDER TROPONIN, QUANT STAT 04/05/2024 1:52 AM POULTRY TENDER ECG 12-LEAD Routine 04/04/2024 11:53 PM POULTRY TENDER XR CHEST PORTABLE STAT 04/04/2024 11: 29 PM POULTRY TENDER ELECTRICAL CARDIOVERSION Routine 04/04/2024 11:03 PM POULTRY TENDER ECG 12-LEAD STAT 04/04/2024 11:02 PM POULTRY TENDER D-DIMER, QUANTITATIVE STAT 04/04/2024 10:58 PM POULTRY TENDER THYROXINE, FREE (FT4) STAT 04/04/2024 10:58 PM POULTRY TENDER MAGNESIUM STAT 04/04/2024 10:58 PM POULTRY TENDER TSH W/REFLEX STAT 04/04/2024 10:58 PM POULTRY TENDER TROPONIN, QUANT STAT 04/04/2024 10:58 PM POULTRY TENDER COMPREHENSIVE METABOLIC PANEL STAT 04/04/2024 10:58 PM POULTRY TENDER CBC W/DIFF AUTOMATED STAT 04/04/2024 10:58 PM POULTRY TENDER ECG 12-LEAD Routine 04/04/2024 10:45 PM POULTRY TENDER PRO-BRAIN NATRIURETIC PEPTIDE Routine 03/23/2024 4:06 PM POULTRY TENDER SOB (shortness of breath) MYOSITIS SPECIFIC 11 ANTIBODY PANEL Routine 03/23/2024 4:06 PM POULTRY TENDER Abnormal CT of the chest CBC W/DIFF AUTOMATED Routine 03/23/2024 4:06 PM POULTRY TENDER Dyspnea on exertion SCL 70 Routine 03/23/2024 4:06 PM POULTRY TENDER Dyspnea on exertion Abnormal CT of the chest ROUGE SIFTER ANTIBODY Routine 03/23/2024 4:06 PM POULTRY TENDER Dyspnea on exertion Abnormal CT of the chest RHEUMATOID FACTOR, QUANT Routine 03/23/2024 4:06 PM POULTRY TENDER Dyspnea on exertion Abnormal CT of the chest IMMUNOGLOBULIN IGE Routine 03/23/2024 4: 06 PM POULTRY TENDER Dyspnea on exertion Abnormal CT of the chest IMMUNOGLOBULINS IGA IGG IGM Routine 03/23/2024 4:06 PM POULTRY TENDER Dyspnea on exertion Abnormal CT of the chest ENA2 (SSA & SSB) Routine 03/23/2024 4:06 PM POULTRY TENDER Dyspnea on exertion Abnormal CT of the chest CYCLIC CITRULLINATED PEPTIDE (CCP)ANTIBODY(IGG) Routine 03/23/2024 4:06 PM POULTRY TENDER Dyspnea on exertion Abnormal CT of the chest ANTINUCLEAR ANTIBODY WI RFX Routine 03/23/2024 4:06 PM POULTRY TENDER Dyspnea on exertion Abnormal CT of the chest ANCA VASCULITIS PANEL Routine 03/23/2024 4:06 PM POULTRY TENDER Dyspnea on exertion Abnormal CT of the chest USE ECHOCARDIOGRAM Routine 03/23/2024 3: 50 PM POULTRY TENDER Dyspnea on exertion Abnormal CT of the chest from Last 3 Months Results * PSG with CPAP/BIPAP (14039) (05/29/2024 8:00 PM POULTRY TENDER) Narrative [facility] - 05/29/2024 8:00 PM POULTRY TENDER Yunior Villalta MD 06/07/2024 1:52 PM [place], [place] CPAP/BILEVEL TITRATION STUDY INTERPRETATION PATIENT NAME: DANETTE SALGADO DATE OF : 1955 DATE OF SERVICE: 05/29/2024 PATIENT TYPE: CLI Ordering Phy Exam Description Julian Delvalle M.D. PSG 4+PARAMETERS W/CPAP ATTENDING PHYSICIAN: Yunior Villalta M.D. REFERRING PHYSICIAN: Julian Delvalle M.D. GENERAL INFORMATION Total Sleep Time: 425.0 minutes Sleep Efficiency Index: 89.9% Sleep Latency: 14.1 minutes REM Latency: 183.5 minutes Post Respiratory Disturbance Index: 2.8 per hour on CPAP of 6 cm h2O Post Apnea-Hypopnea Index: 2.0 per hour on CPAP of 6 cm h2O Procedure: The overnight polysomnogram was an attended study using a multiple channel system including simultaneous monitoring and recording of electroencephalography (EEG), right and left electrooculography (EOC), submental electromyography (EOG), submental electromyography (EMG), EKG, oral/nasal airflow, snoring, respiratory effort, oxygen saturations, right and left anterior tibialis electromyography, and body position. Sleep Architecture: The patient underwent CPAP titration and slept for a total of 425.0 minutes during 472.6 minutes of recording time. Latency to persistent sleep was 14.1 minutes with sleep efficiency of 89.9% and a REM latency of 183.5 minutes. Patient spent 5.2% (22.0 minutes) in stage N1, 66.1% (281.0 minutes) in stage N2, 11.4% (48.5 minutes) in Stage N3, 17.3% (73.5 minutes) in REM. The patient slept 25.8% of the time in supine position, 0.0% of the time in prone position, 0.0% of the time in left-sided position, and 74.2% of the time in right-sided position. There were 111 arousals, of which 22 were associated with respiratory events and 80 were spontaneous. Arousal index was 15.7 per hour. Limb Activity Summary: The patient demonstrated a total of 67 leg movements during the night, of which 62 had the appearance of periodic limb movements. There were a total of 9 arousals associated with leg movements for an arousal index with leg movements of 1.3 per hour. The periodic limb movement index was 8.8 per hour. Cardiac Events Summary: The average heart rate was 76.7 beats per minute. Rare to occasional cardiac arrhythmia was noted during this study. Respiratory Events Summary: There were a total of 33 apneas and hypopneas, of which - were apneas. Of those apneas, - were Obstructive, - were Central and - were Mixed. There were an additional 9 respiratory event-related arousals. Oxygen Saturation Summary: Patient's average saturation was 95.8% during REM and 95.8% during NREM. The patient's lowest saturation was 87.0% during REM and 67.0% during NREM. Saturation was 90% or higher for 95.2% of the total sleep time. Saturation was less than 88% for 1.6% of the total sleep time or 9.1 minutes. CPAP/BiLevel Therapy Summary: The patient underwent CPAP titration starting at 4 cm H2O, up to a maximum of 11 cm H2O. The patient slept for 15.5 minutes while on the final pressure of 11 cm H2O with an AHI of 7.7 per hour, arousal index of 3.9 per hour and minimum oxygen saturation of 84.0%. Assessment/Plan: This patient underwent a PAP titration study. There was limited sleep time at the final pressure titrated, however, the patient had a good amount of sleep with REM and Non-REM sleep noted on a pressure of 6 cm h2O with good control of events. It is recommended that this patient initiate CPAP therapy at home with settings 6.0 cm h2O, EPR 3, with heated humidity to allow the patient to get acclimated to therapy. A one month follow up should be scheduled with the ordering physician to assess the benefit and tolerance of this therapy. If respiratory events persist, further evaluation and possible pressure adjustments may be warranted as clinically indicated. The patient used a ResMed AirFit P30i nasal pillow mask, size small cushion, during this study. Rare to occasional cardiac arrhythmia was noted during this study. Given that the patient's past medical history was not available during interpretation of this study, clinical correlation of this issue may be indicated based upon this patient's underlying medical conditions. This patient should maintain good sleep hygiene techniques, maintain a consistent sleep/wake schedule with adequate hours of sleep, and avoid hazardous activities when sleepy. The patient should be cautioned about factors that may potentially exacerbate snoring and sleep-related problems, such as PSYCHIATRIC ATTENDANT depressants, especially at bedtime. This document was electronically signed by: Yunior Villalta M.D. on 06/02/2023 at 10:57 AM. us Julian Delvalle MD SLEEP CENTER ORDERABLES Final Result [facility] [address] [place] [address], [place] [phone] * Complete PFT (pre/post Hang, Lung Vol, Diff Capacity) (11260, 50205, 80750, 28248) (05/15/2024 4:00 PM POULTRY TENDER) Narrative [facility] - 05/15/2024 4:00 PM POULTRY TENDER Julian Delvalle MD 05/19/2024 10:43 AM [facility] PULMONARY FUNCTION TESTS Danette Salgado 69-year-old Height 60 inches Weight 184 Lbs 05/19/2024 INTERPRETATION Please see technologist's comments. SPIROMETRY: Prebronchodilator FEV1 1.79 L, 93% predicted. FVC 2.58 L, 105% predicted. FEV1/FVC ratio 69% Postbronchodilator FEV1 1.79 L, 93% predicted. FVC 2.69 L, 109% predicted. FEV1/FVC ratio 66% There is No significant response to bronchodilator administration. Inspection of the patient's flow-volume loops shows normal configuration of the inspiratory and expiratory limbs LUNG VOLUMES: TLC 4.24 L, 98% predicted. RV 1.67 L, 98% predicted. DLCO: Due to equipment malfunction DLCO maneuvers cannot be performed 6-minute walk test: Resting oxygen saturation was 94%. She walked 300 feet. Lowest oxygen saturation was 90%. IMPRESSION: Normal spirometry and lung volumes No significant response to bronchodilator. This does not preclude the use of inhaled bronchodilator if clinically indicated 6-minute walk test without the need for supplemental oxygen. Julian Delvalle MD Julian Delvalle MD PFT ORDERABLES Final Result [facility] [address] [place] [address], [place] [phone] * PFT GENERIC (SCAN ORDER) (05/15/2024) 05/15/2024 [facility] Scanned SCANNING Final Resu lt * (ABNORMAL) BASIC METABOLIC PANEL (2024 10:03 AM POULTRY TENDER) GLUCOSE 115(H) 70 - 99 MG/DL 2024 11:45 AM [facility]LTRY TENDER [facility] BUN 16 7 - 18 MG/DL 2024 11:45 AM [facility] CREATININE S/P/B 0.92 0.55 - 1.02 MG/DL 2024 11:45 AM [facility] SODIUM S/P/B 134(L) 136 - 145 MMOL/L 2024 11:45 AM [facility] POTASSIUM S/P/B 3.6 3.5 - 5.1 MMOL/L 2024 11:45 AM [facility] CHLORIDE S/P/B 100 97 - 115 MMOL/L 2024 11:45 AM [facility] CO2 25.7 21 - 32 MMOL/L 2024 11:45 AM [facility] CALCIUM S/P/B 9.1 8.5 - 10.1 MG/DL 2024 11:45 AM [facility] ANION GAP 8.3 2 - 10 MMOL/L 2024 11:45 AM [facility] BUN CREATININE RATIO 17.3 6 - 26 2024 11:45 AM [facility] GFR ESTIMATE 67(L) >90 ML/MIN/1.7 3 M2 2024 11:45 AM [facility] Comment: NOTE: eGFR is not calculated for patients <18 years of age or gender unknown. This is an estimated GFR calculation using the new CKD EPI creatinine equation without race and so does not require a correction factor for race. This estimated GFR should not be used for calculating drug doses. 2024 10:0 3 AM POULTRY TENDER Tammy Grady CHEMICAL WEIGHER LABORATORY Final Result [facility] [address] [place] [address], [place] [phone] * (ABNORMAL) LIPID PANEL (2024 10:03 AM POULTRY TENDER) CHOLESTEROL 166 <200 MG/DL 2024 11:45 AM [facility] TRIGLYCERIDES 353(H) <150 MG/DL 2024 11:45 AM [facility] HDL 42 >40.0 MG/DL 2024 11:45 AM [facility] LDL (CALCULATED) 53 <100 MG/DL 2024 11:45 AM [facility] NON HDL CHOLESTEROL 124 <130 MG/DL 2024 11:45 AM [facility] CHOL/HDL RATIO 4.0 0.0 - 4.5 2024 11:45 AM [facility] VLDL CALCULATION 71(H) 5 - 55 MG/DL 2024 11:45 AM [facility] LIPID INTERPRETATION 2024 11:45 AM [facility] Comment: [facility] CONCENSUS REPORT RECOMMENDATIONS: ADULT CHILD LOW RISK: CHOLESTEROL <200 <170 TRIGLYCERIDE <150 --- HDL >=60 --- LDL <100 <110 BORDERLINE: CHOLESTEROL 200-239 170-199 TRIGLYCERIDE 150-199 --- HDL 40-59 --- LDL 100-159 110-129 HIGH RISK: CHOLESTEROL >=240 >=200 TRIGLYCERIDE >=200 --- HDL <40 --- LDL >=160 >=130 2024 10:0 3 AM POULTRY TENDER us Tammy Grady CHEMICAL WEIGHER LABORATORY Final Result [facility] [address] [place] [address], * NM EXER NUC STRESS TEST 1DAY (2024 9:23 AM POULTRY TENDER) Anatomical Region Laterality Modality Cardiac Nuclear Medicine 2024 8:06 AM POULTRY TENDER Narrative 2024 4:36 PM POULTRY TENDER Myocardial Perfusion Imaging Pat.Name: DANETTE SALGADO Pat.ID: [id number] St.Date: 2024 Refer.MD: Nancy Exam Time: 8:06:00 AM Study Type:WENDY NC HT MUSCLE IMAGE SPECT MULTI Height: 60 in Weight: 185 lb BSA: 1.81 m2 Age: 12 1955,69Y Sex: F Sonogrphr: TAYE Owen Pat. Stat.:Outpatient Reason for Study:Shortness of breath, Evaluation of known CAD History / Clinical:Ex-Smoker, Dyslipidemia, GERD, Sleep Apnea Procedures: Nuclear Stress Test with Exercise Race: W Surgery: Cardiac Catheterization, Nuclear Stress Test, Echocardiogram ++++++++++++++++++++++++++++++++++++ SUMMARY: ++++++++++++++++++++++++++++++++++++ Stress conclusion: 1. Clinically positive for chest pain. 2. Electrocardiographically negative treadmill test for ischemia. 3. Adequate exercise capacity.Heart rate achieved quickly due to deconditioning. 4. Mcleod Treadmill Score is -1.5, which indicates moderate risk. 5. Blood pressure response was normal. Blood pressure at baseline was elevated. 6. Scintigraphic images to follow. Perfusion conclusion: 1. Excellent study quality. No motion correction was applied to images. No attenuation is noted. Prone imaging was performed. 2. Normal myocardial perfusion SPECT imaging. 3. Normal wall motion with an ejection fraction of 90%. 4. Stress test with myocardial perfusion imaging shows overall low risk for a cardiac event. ++++++++++++++++++++++++++++++++++++ FINDINGS: ++++++++++++++++++++++++++++++++++++ Protocol: The images were processed using the standard SPECT technique. A gated study was performed on the stress images. Impression: SPECT images demonstrate normal perfusion of normal intensity. Heart Size: The left ventricle is normal. LV Wall Motion: The LVEF is calculated to be 90%. Gated SPECT images reveal normal wall motion. Transient Ischemic Dilatation: The TID is 0.77. There is no evidence of Transient Ischemic Dilatation. ++++++++++++++++++++++++++++++++++++ STRESS: ++++++++++++++++++++++++++++++++++++ Baseline Vital Signs: ECG: Normal sinus rhythm HR: 86 bmp Rest BP: 147/70 Treadmill Test Protocol: Matthias Duration: 02:30 min:sec Max. Workload (METS): 4.6 Stress Test Results: Max HR: 129 bmp Target HR: 150 bmp % Target: 86 % Max BP: 157/58 Max RPP: 04059 O2 sat: 100 % Symptoms and Complications: Terminated: Shortness of breath Symptoms: Chest pain, Shortness of breath Complications: None Stress ECG Interp: Sinus tachycardia <Electronic Signature> 2024 04:36 PM Tyler Phillips M.D. Procedure Note Tyler Phillips MD - 2024 Myocardial Perfusion Imaging Pat.Name: DANETTE SALGADO Pat.ID: [id number] St.Date: 2024 Refer.MD: Nancy Exam Time: 8:06:00 AM Study Type:WENDY NC HT MUSCLE IMAGE SPECT MULTI Height: 60 in Weight: 185 lb BSA: 1.81 m2 Age: 12 1955,69Y Sex: F Sonogrphr: TAYE Owen Pat. Stat.:Outpatient Reason for Study:Shortness of breath, Evaluation of known CAD History / Clinical:Ex-Smoker, Dyslipidemia, GERD, Sleep Apnea Procedures: Nuclear Stress Test with Exercise Race: W Surgery: Cardiac Catheterization, Nuclear Stress Test, Echocardiogram ++++++++++++++++++++++++++++++++++++ SUMMARY: ++++++++++++++++++++++++++++++++++++ Stress conclusion: 1. Clinically positive for chest pain. 2. Electrocardiographically negative treadmill test for ischemia. 3. Adequate exercise capacity.Heart rate achieved quickly due to deconditioning. 4. Mcleod Treadmill Score is -1.5, which indicates moderate risk. 5. Blood pressure response was normal. Blood pressure at baseline was elevated. 6. Scintigraphic images to follow. Perfusion conclusion: 1. Excellent study quality. No motion correction was applied to images. No attenuation is noted. Prone imaging was performed. 2. Normal myocardial perfusion SPECT imaging. 3. Normal wall motion with an ejection fraction of 90%. 4. Stress test with myocardial perfusion imaging shows overall low risk for a cardiac event. ++++++++++++++++++++++++++++++++++++ FINDINGS: ++++++++++++++++++++++++++++++++++++ Protocol: The images were processed using the standard SPECT technique. A gated study was performed on the stress images. Impression: SPECT images demonstrate normal perfusion of normal intensity. Heart Size: The left ventricle is normal. LV Wall Motion: The LVEF is calculated to be 90%. Gated SPECT images reveal normal wall motion. Transient Ischemic Dilatation: The TID is 0.77. There is no evidence of Transient Ischemic Dilatation. ++++++++++++++++++++++++++++++++++++ STRESS: ++++++++++++++++++++++++++++++++++++ Baseline Vital Signs: ECG: Normal sinus rhythm HR: 86 bmp Rest BP: 147/70 Treadmill Test Protocol: Matthias Duration: 02:30 min:sec Max. Workload (METS): 4.6 Stress Test Results: Max HR: 129 bmp Target HR: 150 bmp % Target: 86 % Max BP: 157/58 Max RPP: 94579 O2 sat: 100 % Symptoms and Complications: Terminated: Shortness of breath Symptoms: Chest pain, Shortness of breath Complications: None Stress ECG Interp: Sinus tachycardia <Electronic Signature> 2024 04:36 PM Tyler Phillips M.D. Tammy Grey Ysabel CHEMICAL WEIGHER NUC MED Final Result * CTA CHEST PE PROTOCOL (04/05/2024 9:33 AM POULTRY TENDER) Anatomical Region Laterality Modality Chest Computed Tomogra phy 04/05/2024 9:48 AM POULTRY TENDER Impressions 04/05/2024 9:53 AM POULTRY TENDER IMPRESSION: 1. No evidence of acute pulmonary embolism. 2. Bilateral basilar atelectasis and findings suggestive of mild pulmonary edema. Referred By: Interpreted By: Kyree Zhang MD, 04/05/2024 9:48 AM Narrative 04/05/2024 9:53 AM POULTRY TENDER [address] [address] EXAMINATION: CT ANGIOGRAM CHEST WITH CONTRAST EXAM DATE: 04/05/2024 9:28 AM REASON FOR EXAM: elevated dimer, hypoxia, chest pain on presentation COMPARISON: 03/02/2024 high-resolution CT chest without contrast. TECHNIQUE: Axial images through the chest after injection of 80 mL Isovue-370. 3-D post processed images were reconstructed on an independent workstation with concurrent physician supervision. Dose lowering technique was used for this study which may include, but is not limited to, dose reduction techniques, automated exposure control, use of iterative reconstruction and ALARA (As low As Reasonably Achievable)/Image Gently techniques. FINDINGS: Adequate opacification of the pulmonary arteries. No evidence of acute pulmonary embolism. LUNGS: Mild dependent groundglass opacities as seen on 03/02/2024. Mild bilateral basilar atelectasis. Mild septal thickening suggestive of early pulmonary edema. No supraclavicular or mediastinal or hilar lymphadenopathy. Heart size normal. No pericardial effusion. Moderate hiatal hernia. Atherosclerosis and coronary calcifications. Limited evaluation of the upper abdomen demonstrates severe diffuse hepatic steatosis. Bones: No suspicious skeletal lesion or evidence of fracture. Scattered degenerative changes of the spine. Procedure Note Kyree Zhang MD - 04/05/2024 [facility] [address] [place], [place] [address] EXAMINATION: CT ANGIOGRAM CHEST WITH CONTRAST EXAM DATE: 04/05/2024 9:28 AM REASON FOR EXAM: elevated dimer, hypoxia, chest pain on presentation COMPARISON: 03/02/2024 high-resolution CT chest without contrast. TECHNIQUE: Axial images through the chest after injection of 80 mLIsovue-370. 3-D post processed images were reconstructed on an independent workstationwith concurrent physician supervision. Dose lowering technique was used for this study which may include, but isnot limited to, dose reduction techniques, automated exposure control, use of iterativereconstruction and ALARA (As low As Reasonably Achievable)/Image Gently techniques. FINDINGS: Adequate opacification of the pulmonary arteries. No evidence of acutepulmonary embolism. LUNGS: Mild dependent groundglass opacities as seen on 03/02/2024. Mildbilateral basilar atelectasis. Mild septal thickening suggestive of early pulmonary edema. No supraclavicular or mediastinal or hilar lymphadenopathy. Heart sizenormal. No pericardial effusion. Moderate hiatal hernia. Atherosclerosis and coronary calcifications. Limited evaluation of the upper abdomen demonstrates severe diffusehepatic steatosis. Bones: No suspicious skeletal lesion or evidence of fracture. Scattereddegenerative changes of the spine. IMPRESSION: 1. No evidence of acute pulmonary embolism. 2. Bilateral basilar atelectasis and findings suggestive of mildpulmonary edema. Referred By: Interpreted By: Kyree Zhang MD, 04/05/2024 9:48 AM Emmanuel Fernández MD CT Final Result * (ABNORMAL) COMPREHENSIVE METABOLIC PANEL (04/05/2024 7:11 AM [facility]) Only the most recent of2 resultswithin the time period is included. [facility] Signature GLUCOSE 111(H) 70 - 99 MG/DL 04/05/2024 8:04 AM [facility] BUN 11 7 - 18 MG/DL 04/05/2024 8:04 AM [facility] CREATININE S/P/B 0.69 0.55 - 1.02 MG/DL 04/05/2024 8:04 AM [facility] SODIUM S/P/B 143 136 - 145 MMOL/L 04/05/2024 8:04 AM [facility] POTASSIUM S/P/B 4.3 3.5 - 5.1 MMOL/L 04/05/2024 8:04 AM [facility] CHLORIDE S/P/B 114 97 - 115 MMOL/L 04/05/2024 8:04 AM [facility] CO2 26.9 21 - 32 MMOL/L 04/05/2024 8:04 AM [facility] CALCIUM S/P/B 8.4(L) 8.5 - 10.1 MG/DL 04/05/2024 8:04 AM [facility] BILIRUBIN TOTAL S/P/B 0.4 0.2 - 1.2 MG/DL 04/05/2024 8:04 AM [facility] Comment: THIS ASSAY IS NOT RECOMMENDED FOR PATIENTS UNDERGOING TREATMENT WITH ELTROMBOPAG DUE TO THE POTENTIAL FOR FALSELY ELEVATED RESULTS. TOTAL PROTEIN S/P/B 5.6(L) 6.4 - 8.2 G/DL 04/05/2024 8:04 AM [facility] ALBUMIN S/P/B 2.9(L) 3.4 - 5.0 G/DL 04/05/2024 8:04 AM [facility] AST 25 15 - 37 U/L 04/05/2024 8:04 AM [facility] ALT 34 14 - 55 U/L 04/05/2024 8:04 AM [facility] ALKALINE PHOSPHATASE S/P/B 67 50 - 136 U/L 04/05/2024 8:04 AM [facility] ANION GAP 2.1 2 - 10 MMOL/L 04/05/2024 8:04 AM [facility] BUN CREATININE RATIO 16.0 6 - 26 04/05/2024 8:04 AM [facility] A/G RATIO 1.1 1.0 - 2.0 RATIO 04/05/2024 8:04 AM [facility] GFR ESTIMATE >90 >90 ML/MIN/1.7 3 M2 04/05/2024 8:04 AM [facility] Comment: NOTE: eGFR is not calculated for patients <18 years of age or gender unknown. This is an estimated GFR calculation using the new CKD EPI creatinine equation without race and so does not require a correction factor for race. This estimated GFR should not be used for calculating drug doses. 04/05/2024 7:11 AM POULTRY TENDER Nadia Curiel NP LABORATORY Final Result [facility] [address] [place] [address], [place] [phone] * (ABNORMAL) CBC W/DIFF AUTOMATED (04/05/2024 7:11 AM POULTRY TENDER) Only the most recent of3 resultswithin the time period is included. WBC 6.29 4.5 - 11.0 x10'3/uL 04/05/2024 7:44 AM [facility] RBC 4.65 4.20 - 5.40 x10'6/uL 04/05/2024 7:44 AM [facility] HGB 12.9 12.0 - 16.0 G/DL 04/05/2024 7:44 AM [facility] HCT 41.2 38.0 - 48.0 % 04/05/2024 7:44 AM [facility] MCV 88.6 81.0 - 99.0 FL 04/05/2024 7:44 AM [facility] MCH 27.7 27.0 - 31.0 PG 04/05/2024 7:44 AM [facility] MCHC 31.3(L) 32.0 - 36.0 G/DL 04/05/2024 7:44 AM [facility] RDW 13.2 11.5 - 14.5 % 04/05/2024 7:44 AM [facility] PLT 292 130 - 400 x10'3/uL 04/05/2024 7:44 AM [facility] MPV 10.3 9.3 - 12.2 FL 04/05/2024 7:44 AM [facility] DIFFERENTIAL TYPE AUTOMATED DIFFERENTIAL 04/05/2024 7:44 AM [facility] NEUTROPHILS % 55.8 % 04/05/2024 7:44 AM [facility] LYMPHOCYTES % 30.2 % 04/05/2024 7:44 AM [facility] MONOCYTES % 8.6 % 04/05/2024 7:44 AM [facility] EOSINOPHILS 3.5 % 04/05/2024 7:44 AM [facility] BASOPHILS 1.4 % 04/05/2024 7:44 AM [facility] IMMATURE GRANS % 0.5 % 12/04/20 24 7:44 AM POULTRY TENDER [facility] ABS. NEUTROPHILS 3.51 1.80 - 7.70 x10'3/uL 04/05/2024 7:44 AM [facility] ABS. LYMPHOCYTES 1.90 1.00 - 4.80 x10'3/uL 04/05/2024 7:44 AM [facility] ABS. MONOCYTES 0.54 0.24 - 0.86 x10'3/uL 04/05/2024 7:44 AM POULTRY TENDER [facility] ABS. EOSINOPHILS 0.22 0.04 - 0.36 x10'3/uL 04/05/2024 7:44 AM [facility] ABS. BASOPHILS 0.09(H) 0.01 - 0.08 x10'3/uL 04/05/2024 7:44 AM [facility] ABS. IMMATURE GRANULOCYTES 0.03 0.00 - 0.49 x10'3/uL 04/05/2024 7:44 AM [facility] 04/05/2024 7:11 AM POULTRY TENDER Nadia Curiel NP LABORATORY Final Result [facility] [address] [place] [address], * (ABNORMAL) TROPONIN, QUANT (04/05/2024 7:11 AM POULTRY TENDER) Only the most recent of3 resultswithin the time period is included. TROPONIN I HIGH SENSITIVITY 154(HH) <54 ng/L 04/05/2024 10:49 AM [facility] Comment: NOT CALLED PER CRITICAL VALUE POLICY HIGH DOSES OF BIOTIN, TROPONIN-SPECIFIC AUTOANTIBODIES, AND ANTIBODY THERAPY CONTAINING HAMA MAY INTERFERE WITH THIS TEST RESULT. CORRELATION TO CLINICAL HISTORY AND PRESENTATION RECOMMENDED. 04/05/2024 7:11 AM POULTRY TENDER Emmanuel Fernández MD LABORATORY Final Result [facility] [address] [place] [address], [place] [phone] * MAGNESIUM (04/05/2024 7:11 AM POULTRY TENDER) Only the most recent of2 resultswithin the time period is included. MAGNESIUM 2.0 1.8 - 2.4 MG/DL 04/05/2024 8:04 AM POULTRY TENDER [facility] 04/05/2024 7:11 AM POULTRY TENDER Nadia Curiel NP LABORATORY Final Result Performing Organization Address City/[facility] Co de Phone Number [facility] [address] [place] [address], [place] [phone] * ECG 12 lead (04/04/2024 11:53 PM POULTRY TENDER) Only the most recent of3 resultswithin the time period is included. 04/04/2024 11:5 3 PM POULTRY TENDER Narrative [facility] RAD - 04/05/2024 6:24 AM POULTRY TENDER [address] Test Date: 2024-04-04 Pat Name: DANETTE SALGADO Department: 41 Room: A427 Gender: Female Chief Human Resources Officer: : 1955 Requested By: VIANEY BLUNT Order Number: [id number] Guevara MD: Simon Villalta Measurements Intervals [place] Rate: 96 P: 59 MS: 157 QRS: 28 QRSD: 85 T: 46 QT: 355 QTc: 450 Interpretive Statements SINUS RHYTHM WITH OCCASIONAL ECTOPIC PREMATURE COMPLEXES SEPTAL MYOCARDIAL INFARCTION [40+ ms Q WAVE IN V1/V2], PROBABLY OLD Compared to ECG 04/04/2024 23:02:00 No significant changes TRY TENDER Procedure Note Simon Villalta MD - 04/05/[address] Test Date: 2024-04-04 Pat Name: DANETTE SALGADO Department: 41 Room: A4 Gender: Female Chief Human Resources Officer: : 1955 Requested By: VIANEY BLUNT Order Number: [id number] Reading MD: Simon Villalta Measurements Intervals [place] Rate: 96 P: 59 MS: 157 QRS: 28 QRSD: 85 T: 46 QT: 355 QTc: 450 Interpretive Statements SINUS RHYTHM WITH OCCASIONAL ECTOPIC PREMATURE COMPLEXES SEPTAL MYOCARDIAL INFARCTION [40+ ms Q WAVE IN V1/V2], PROBABLY OLD Compared to ECG 04/04/2024 23:02:00 No significant changes TRY TENDER us Vianey Blunt MD ECG ORDERABLES Final Resul t [facility] RAD * XR CHEST PORTABLE (04/04/2024 11:29 PM POULTRY TENDER) Anatomical Region Laterality Modality Chest Radiographic Emily ging 04/04/2024 11:3 8 PM POULTRY TENDER Impressions 04/04/2024 11:40 PM POULTRY TENDER IMPRESSION: 1. NO RADIOGRAPHIC EVIDENCE OF ACTIVE DISEASE THE CHEST. Signed: Ronald Edwards MD Referred By: Interpreted By: Ronald Edwards MD, 04/04/2024 11:38 PM Narrative 04/04/2024 11:40 PM POULTRY TENDER [address] [address] PATIENT NAME: DANETTE SALGADO EXAM: Chest one view DATE OF EXAM: 04/04/2024 COMPARISON EXAM: None INDICATION: Chest pain TECHNIQUE: AP chest FINDINGS: Heart size within normal limits. Pulmonary vasculature within normal limits. Small hiatal hernia. No acute pulmonary parenchymal opacity. No pleural effusion. No hyperinflation. Procedure Note Ronald Edwards MD - 04/04/[address] [address] PATIENT NAME: DANETTE SALGADO EXAM: Chest one view DATE OF EXAM: 04/04/2024 COMPARISON EXAM: None INDICATION: Chest pain TECHNIQUE: AP chest FINDINGS: Heart size within normal limits. Pulmonary vasculature withinnormal limits. Small hiatal hernia. No acute pulmonary parenchymalopacity. No pleural effusion. No hyperinflation. IMPRESSION: 1. NO RADIOGRAPHIC EVIDENCE OF ACTIVE DISEASE THE CHEST. Signed: Ronald Edwards MD Referred By: Interpreted By: Ronald Edwards MD, 04/04/2024 11:38 PM Em [facility] Final Result * Cardioversion (04/04/2024 11:03 PM POULTRY TENDER) Vianey Moon MD - 04/04/2024 11:03 PM POULTRY TENDER Vianey Blunt MD 04/05/2024 12:51 AM Cardioversion Date/Time: 04/04/2024 11:03 PM Performed by: Vianey Blunt MD Authorized by: Vianey Blunt MD Consent: Consent obtained: Verbal Consent given by: Patient Risks, benefits, and alternatives were discussed: yes Risks discussed: Induced arrhythmia and Alternatives discussed: Alternative treatment and delayed treatment Pre-procedure details: Cardioversion basis: Emergent Rhythm: Supraventricular tachycardia Attempt one: Cardioversion mode attempt one: chemical with 6mg adenosine. Shock outcome: Conversion to normal sinus rhythm Post-procedure details: Procedure completion: Tolerated well, no immediate complications us Vianey Blunt MD PROCEDURE/MINOR SURGICAL OR DERABLES Final Result * (ABNORMAL) TSH W/REFLEX (04/04/2024 10:58 PM POULTRY TENDER) TSH 5.270(H) 0.358 - 3.74 uIU/ML 04/04/2024 11:38 PM POULTRY TENDER [facility] Comment: HIGH DOSES OF BIOTIN MAY INTERFERE WITH THIS TEST RESULT. CORRELATION TO CLINICAL HISTORY AND PRESENTATION RECOMMENDED. 04/04/2024 10:5 8 PM POULTRY TENDER Vianey Blunt MD LABORATORY Final Resul t Performing Organization Address [facility] Co de Phone Number [facility] [address] [place] [address], * (ABNORMAL) D-DIMER, QUANTITATIVE (04/04/2024 10:58 PM POULTRY TENDER) D-DIMER 650(HH) 0 - 500 ng{FEU}/mL 04/05/2024 12:34 AM POULTRY TENDER [facility] Comment: D-Dimer values less than or equal to 500 ng/mL FEU have a negative predictive value of >95% for exclusion of deep vein thrombosis and pulmonary embolism. In patients over 50 (who tend to have higher normal baseline D-Dimer values), recent studies suggest age-adjusted D-Dimer cutoff values (calculated as: age [years] x 10 ng/mL) result in equivalent outcomes and no additional false negative findings. Successful Call: DDIMR called 04/05/2024 00:35 AM to EMERGENCY ROOM ([id number]/KRISTINA LAMAR) by [id number]. Read Back: Yes 04/04/2024 10:5 8 PM POULTRY TENDER us Vianey Blunt MD LABORATORY Final Resul t Performing Organization Address City/[facility]/ZIP Co de Phone Number [facility] [address] [place] [address], [place] [phone] * THYROXINE, FREE (FT4) (04/04/2024 10:58 PM POULTRY TENDER) FREE T4 1.22 0.76 - 1.46 NG/DL 04/04/2024 11:54 PM POULTRY TENDER [facility] 04/04/2024 10:5 8 PM POULTRY TENDER Vianey Blunt MD LABORATORY Final Resul t [facility] [address] [place] [address], * (ABNORMAL) MYOSITIS SPECIFIC 11 ANTIBODY PANEL (03/23/2024 4:06 PM POULTRY TENDER) FLOR-1 ANTIBODY <11 <11 SI 04/03/2024 4:33 PM POULTRY TENDER [facility] [address] AUTOANTIBODIES <11 <11 SI 04/03 4:33 PM POULTRY TENDER [facility] [facility] [address]12 AUTOANTIBODIES <11 <11 SI 04/03/2024 4:33 PM POULTRY TENDER [facility] [facility] EJ AUTO ANTIBODIES <11 <11 SI 2023 4:33 PM POULTRY TENDER [facility] OJ AUTO ANTIBODIES <11 <11 SI 2023 4:33 PM POULTRY TENDER [facility] SRP AUTOANTIBODIES 12(H) <11 SI 2023 4:33 PM POULTRY TENDER [facility] [facility] MN-2 ALPHA AUTO AB <11 <11 SI 2023 4:33 PM POULTRY TENDER [facility] [facility] MN-2 BETA AUTO AB <11 <11 SI 024 4:33 PM POULTRY TENDER [facility] [facility] MDA-5 AB S/P/B <11 <11 SI 04/03/2024 4:33 PM POULTRY TENDER [facility] [facility] TIF-1Y AB S/P/B <11 <11 SI 4:33 PM POULTRY TENDER [facility] [facility] NXP-2 AB S/P/B <11 <11 SI 04/03/2024 4:33 PM POULTRY TENDER [facility] Comment: Myositis-specific autoantibodies (MSAs) are highly selective, generally mutually exclusive, and are associated with a particular clinical phenotype within the myositis spectrum. Anti-synthetase syndrome is associated with MSAs to cytoplasmic enzymes and tRNAs involved with the synthesis of proteins. Target antigens include Flor-1, PL-7, PL-12, EJ, and OJ. Clinically, anti-synthetase syndrome is primarily characterized by myositis and lung inflammation. Dermatomyositis is associated with MSAs to SRP, Mi-2A, Mi-2B, and clinically this disease is characterized by myositis in association with a rash. Additionally, MSAs to MDA5 (ANBP289) have been identified in patients with clinically amyopathic dermatomyositis and rapidly progressive lung disease. MSAs to TIF1-y and NXP-2, collectively, are seen in >40% of children with dermatomyositis and appear to identify those with more severe disease. Finally, TIF1-y Ab has been reported in adults with dermatomyositis and is associated with malignancy, but not in children. SRP Ab has also been associated with necrotizing myopathy, a disease with unique histological features and an aggressive clinical course. This test was developed and its analytical performance characteristics have been determined by [employer]. It has not been cleared or approved by the FDA. This assay has been validated pursuant to the CLIA regulations and is used for clinical purposes. Test performed by [facility] [id number] [place] [address] Occupational Therapy Aides Teacher: Mary Stevenson MD,PHD,LAZARA Test Reported by [facility], [employer] [place], [address] [place], [place] Asa Lynne M.D., Ph.D., Director of Laboratories , CLIA [id number] 03/23/2024 4:06 PM POULTRY TENDER Julian Delvalle MD LABORATORY Final Result [id number] [address] [place], [place] , [place] [phone] * ANCA VASCULITIS PANEL (03/23/2024 4:06 PM POULTRY TENDER) MYELOPEROXIDASE AB <1.0 <1.0 AI 2023 8:31 AM POULTRY TENDER [facility] Comment: Value Interpretation <1.0 AI: No Antibody Detected >or=1.0 AI: Antibody Detected Autoantibodies to myeloperoxidase (MPO) are commonly associated with the following small-vessel vasculitides: microscopic polyangiitis, polyarteritis nodosa, Churg-Jennifer syndrome, necrotizing and crescentic glomerulonephritis and occasionally granulomatosis with polyangiitis (GPA, Jimmie's). The perinuclear IFA pattern, (p-ANCA) is based largely on autoantibody to myeloperoxidase which serves as the primary antigen. These autoantibodies are present in active disease. C ANCA <1.0 <1.0 AI 03/29/2024 8:31 AM POULTRY TENDER [facility] Comment: Value Interpretation <1.0 AI: No Antibody Detected >or=1.0 AI: Antibody Detected Autoantibodies to proteinase-3 (MS-3) are accepted as characteristic for granulomatosis with polyangiitis (GPA, Jimmie's), and are detectable in 95% of the histologically proven cases. The cytoplasmic IFA pattern, (c-ANCA), is based largely on autoantibody to MS-3 which serves as the primary antigen. These autoantibodies are present in active disease. Test Performed by [facility], [facility], [address] [place], [place] Asa Lynne M.D., Ph.D., Director of Laboratories , CLIA [id number] 03/23/2024 4:06 PM POULTRY TENDER Julian Delvalle MD LABORATORY Final Result [facility] [address] [place], [place] , [place] [phone] * (ABNORMAL) ROUGE SIFTER ANTIBODY (03/23/2024 4:06 PM POULTRY TENDER) ROUGE SIFTER (U1) AB S/P/B 1.0(H) 024 2:25 AM POULTRY TENDER [facility] Comment: Reference Range: < 1.0 NEG AI Test Performed by [facility], [facility], [address] [place] [address] Asa Lynne M.D., Ph.D., Director of Laboratories , [place] [id number] 03/23/2024 4:06 PM POULTRY TENDER us Julian Delvalle MD LABORATORY Final Result Performing Organization Address City/[facility]/ZIP Co de Phone Number [facility] [address] , [place] [phone] * ANTINUCLEAR ANTIBODY WI RFX (03/23/2024 4:06 PM POULTRY TENDER) Pathologist [facility] [place] 0.1 03/27/2024 12:[address] [facility] Comment: NEGATIVE: <0.7 RATIO [place] PROFILE AND TITER NOT PERFORMED THE [place] SCREEN TESTS FOR THE FOLLOWING ANTIBODIES BY EIA: SSA1 (RO), SSB1 (LA), CURIEL, SCL70, JO1, CENTROMERE, ROUGE SIFTER HISTONE MUST BE ORDERED SEPARATELY DNA (DS) ANTIBODY 0.9 IU/ML 024 12:[address] [facility] Comment: NEGATIVE: <10 IU/mL EQUIVOCAL: 10 to 15 IU/mL POSITIVE: >15 IU/mL THIS QUANTITATIVE ASSAY IS CALIBRATED TO THE [employer]'S WO/80 STANDARD. THE LEVEL OF dsDNA AUTOANTIBODY GERERALLY CORRELATES WITH THE LEVEL OF DISEASE ACTIVITY IN SYSTEMIC LUPUS ERYTHMATOSUS 03/23/2024 4:06 PM POULTRY TENDER us Julian Delvalle MD LABORATORY Final Result [facility] [address] [place] [address], [place] [phone] [id number] * PRO-BNP (03/23/2024 4:06 PM POULTRY TENDER) PRO-B TYPE NATRIURETIC PEPTIDE 102 <125 PG/ML 03/23/2024 4:59 PM POULTRY TENDER [facility] Comment: CUT POINTS ESTABLISHED BY [employer]NATIONAL [employer] ON NT PROBNP (ICON) STUDY (2006). AGE INDEPENDENT: <300 PG/ML HAS A 99% NEGATIVE PREDICTIVE VALUE FOR EXCLUDING ACUTE CHF <50 YEARS: >450 PG/ML IS CONSISTENT WITH ACUTE CHF 50-75 YEARS: >900 PG/ML IS CONSISTENT WITH ACUTE CHF >75 YEARS: >1800 PG/ML IS CONSISTENT WITH ACUTE CHF IN PATIENTS WITH RENAL INSUFFICIENCY (GFR <60), >1200 PG/ML YIELDS A DIAGNOSTIC SENSITIVITY AND SPECIFICITY OF 89% AND 72% FOR ACUTE CHF. 03/23/2024 4:06 PM POULTRY TENDER Tyler Phillips MD LABORATORY Final Res ult [facility] [address] [place] [address], [place] [phone] * RHEUMATOID FACTOR, QUANT (03/23/2024 4:06 PM POULTRY TENDER) RHEUMATOID FACTOR <10 <15 IU/ML 03/23/2024 4:59 PM POULTRY TENDER [facility] 03/23/2024 4:06 PM POULTRY TENDER Julian Delvalle MD LABORATORY Final Result [facility] [address] [place] [address], [place] [phone] * CYCLIC CITRULLINATED PEPTIDE (CCP)ANTIBODY(IGG) (03/23/2024 4:06 PM POULTRY TENDER) Pathologist [facility] CITRULLINE PEPTIDE ANTIBODY <16 <20 Units 03/29/2024 9:35 PM POULTRY TENDER [facility] Comment: Negative: <20 Weak Positive: 20 - 39 Moderate Positive: 40 - 59 Strong Positive: >59 Test Performed by [employer] [place], [employer] [place], [address] [place] [address] Asa Lynne M.D., Ph.D., Director of Laboratories , CLIA [id number] 03/23/2024 4:06 PM POULTRY TENDER us Julian Delvalle MD LABORATORY Final Result [facility] , [place] [phone] * SCL 70 (03/23/2024 4:06 PM POULTRY TENDER) Pathologist [facility] SCL 70 S/P/B <1.0 03/29/2024 1:47 AM POULTRY TENDER [facility] Comment: Reference Range: < 1.0 NEG AI Test Performed by [employer] [place], [employer] [place], [address] [place] [address] Asa Lynne M.D., Ph.D., Director of Laboratories , CLIA [id number] 03/23/2024 4:06 PM POULTRY TENDER us Julian Delvalle MD LABORATORY Final Result [address] , [place] [phone] * ENA2 (SSA & SSB) (03/23/2024 4:06 PM POULTRY TENDER) Pathologist [facility] SSA ANTIBODY <1.0 03/29/2024 1:47 AM POULTRY TENDER [facility] Comment: Reference Range: < 1.0 NEG AI SSB ANTIBODY <1.0 03/29/2024 1:47 AM POULTRY TENDER [facility] Comment: Reference Range: < 1.0 NEG AI Test Performed by [facility], [facility], [address] [place] [address] Asa Lynne M.D., Ph.D., Director of Laboratories , [facility] [id number] 03/23/2024 4:06 PM POULTRY TENDER Julian Delvalle MD LABORATORY Final Result [address] , [place] [phone] * IMMUNOGLOBULIN IGE (03/23/2024 4:06 PM POULTRY TENDER) Pathologist [facility] IGE 36.9 0 - 100 kU/L 03/24/2024 1:[address] [facility] 03/23/2024 4:06 PM POULTRY TENDER Julian Delvalle MD LABORATORY Final Result [facility] [address] [place] [address], [id number] * (ABNORMAL) IMMUNOGLOBULINS IGA IGG IGM (03/23/2024 4:06 PM POULTRY TENDER) IGA 53(L) 70 - 320 mg/dL 03/29/2024 4:40 AM POULTRY TENDER [facility] IMMUNOGLOBULIN G 656 600 - 1,540 mg/dL 03/29/2024 4:40 AM POULTRY TENDER [facility] IGM 32(L) 50 - 300 mg/dL 03/29/2024 4:40 AM POULTRY TENDER [facility] Comment: Test Performed by [facility], [address] [place] [address] Asa Lynne M.D., Ph.D., Director of Laboratories , [facility] [id number] 03/23/2024 4:06 PM POULTRY TENDER Julian Delvalle MD LABORATORY Final Result [facility] [address] [place], [place] , * USE ECHOCARDIOGRAM (03/23/2024 3:50 PM POULTRY TENDER) Anatomical Region Laterality Modality Cardiac Echocardiogram 03/23/2024 3:21 PM POULTRY TENDER Narrative 03/24/2024 12:19 PM POULTRY TENDER Echocardiography Report Pat.Name: DANETTE SALGADO Pat.ID: [id number] St.Date: 03/23/2024 Refer.MD: [id number] SERA Maher EWDPROV EWDPROV Exam Time: 3:21:00 PM Study Type:ECHO WITH CARDIAC DOPPLER COMP Height: 60 in Weight: 183 lb BSA: 1.8 m2 Age: 12 1955,68Y Sex: F BP: 154/79 HR: 70 bpm Sonogrphr: Deborah Prater Pat. Stat.:Outpatient Reason for Study:Dyspnea/shortness of breath Procedures: 2D, M-mode, Doppler, Color Flow, The study quality is technically adequate. Race: W ++++++++++++++++++++++++++++++++++++ SUMMARY: ++++++++++++++++++++++++++++++++++++ The left ventricular size is normal. The left ventricular systolic function is normal. Estimated left ventricular ejection fraction is 60-65%. Left ventricular diastolic function is abnormal (grade 1 - impaired relaxation). The right ventricular size is normal. Right ventricular systolic function is normal. Moderate mitral regurgitation. ++++++++++++++++++++++++++++++++++++ FINDINGS: ++++++++++++++++++++++++++++++++++++ LV: The left ventricular size is normal. The left ventricular systolic function is normal. Estimated left ventricular ejection fraction is 60-65%. There is no left ventricular hypertrophy. Left ventricular diastolic function is abnormal (grade 1 - impaired relaxation). WM: Wall motion appears normal in all segments. RV: The right ventricular size is normal. Right ventricular systolic function is normal. IVS: No evidence of ventricular septal defect. LA: The left atrial size is normal. The left atrial volume is normal ( less than 34 ml/M2). RA: Right atrial size is normal. IAS: Atrial septum is poorly visualized. ED: No evidence of pericardial effusion. AO: Aorta is normal. PA: Estimated right atrial pressure of 3 mmHg. Unable to reliably quantitate pulmonary systolic pressure. SVn: Systemic veins are normal. AV: The aortic valve is trileaflet. No evidence of aortic valve stenosis. No evidence of aortic valve regurgitation. The aortic valve not well visualized. MV: Moderate mitral regurgitation. No evidence of mitral stenosis. PV: Trace pulmonic regurgitation. No evidence of pulmonic valve stenosis. Pulmonic valve not well visualized. TV: A trace of tricuspid regurgitation. No evidence of tricuspid valve stenosis. ++++++++++++++++++++++++++++++++++++ MEASUREMENTS: ++++++++++++++++++++++++++++++++++++ DOPPLER LVOT LVOTpkPG 6 mmHg LVOTmnPG 3 mmHg LVOTpkVel 121 cm/s (70-110)+* LVOT SV 77 ml LVOT TVI 24.5 cm Pulmonary Veins PVnpkVeld 27.9 cm/s PVnVs/Vd 1.6 PVnpkVels 43.7 cm/s AV Forward Flow AV TVI 29.4 cm AV pkPG 7 mmHg AV pkVel 132 cm/s (100-170)+ Area (TVI) 2.62 cm2 (3-5)* AV mnPG 4 mmHg Area (Tj) 2.88 cm2 (3-5)* MV Forward Flow MV DeTm 238 msec MV pkE 81.6 cm/s (60-130) MV E/A 1.2 MV pkA 70.2 cm/s MV Regurg Flow MV pkPG 109 mmHg MV pkVel 522 cm/s (60-130)* PV Forward Flow PV pkVel 114 cm/s (60-90)* PV AC 132 msec PV pkPG 5 mmHg TV Forward Flow TV E/A 1.2 TV pkA 40.2 cm/s TV pkE 46.9 cm/s Lat E' Lat e 9.36 cm/s Lat E/E' Lat E/e 8.7 Med E' Med e 6.64 cm/s Med E/E' Med E/e 12.3 Aortic Valve Aortic Valve Ar 1.46 Aortic Valve Ve 0.92 PV Antegrade Flow Acceleration Sl 449 cm/s2 Right Atrium Mcintyre's Disk 20 Right Ventricle Right Ventricle 11 cm/s 2D Left Ventricle LVIDd 4.8 cm (3.6-5.2) LV ESV 21.2 ml LVIDs 3.3 cm (2.3-3.9) LV ESV 22.1 ml LngAxd 7.23 cm LVESV BP 22.5 ml LngAxd 7.73 cm LV EF 57.3 % LV EDV 49.6 ml LV EF 63.6 % LV EDV 60.7 ml LV EF BP 60.2 % LVEDV BP 56.6 ml LV SV 28.4 ml LngAxs 6.02 cm LV SV 38.6 ml LngAxs 6.69 cm LV SV BP 34.1 ml LVPW LVPWd 0.7 cm Ventricular Septum IVSd 0.7 cm Left Atrium LA a-p 3.2 cm (2.8-3.4) LA VOLBP 47.6 ml Aorta Ao Rtd 3.5 cm (zsc 2.5)* Ao Asc 3.2 cm (zsc 3)* LVOT LVOT 2 cm LVOTArea 3.14 cm2 Ratios IVS LA Biplane LAVol I BP 26.4 ml/m2 RA Single Plane Right Atrium MO 11.1 mm Right Atrium Sy 31.3 ml Right Atrium Sy 46.8 mm Right Atrium Sy 17.4 ml/m2 Right Atrium Sy 13.4 cm2 Right Ventricle Right Ventricle 35 mm Right Ventricle 30 mm Major Tarlton 71 mm MMODE TA Tricuspid Annul 25.7 mm <Electronic Signature> 03/24/2024 12:19 PM Tyler Phillips M.D. Procedure Note Tyler Phillips MD - 03/24/2024 Echocardiography Report Pat.Name: DANETTE SALGADO Pat.ID: [id number] .Date: 03/23/2024 Refer.MD: [id number] SERA Maher EWDPROV EWDPROV Exam Time: 3:21:00 PM Study Type:ECHO WITH CARDIAC DOPPLER COMP Height: 60 in Weight: 183 lb BSA: 1.8 m2 Age: 12 1955,68Y Sex: F BP: 154/79 HR: 70 bpm Sonogrphr: Deborah Prater Pat. Stat.:Outpatient Reason for Study:Dyspnea/shortness of breath Procedures: 2D, M-mode, Doppler, Color Flow, The study quality is technically adequate. Race: W ++++++++++++++++++++++++++++++++++++ SUMMARY: ++++++++++++++++++++++++++++++++++++ The left ventricular size is normal. The left ventricular systolic function is normal. Estimated left ventricular ejection fraction is 60-65%. Left ventricular diastolic function is abnormal (grade 1 - impaired relaxation). The right ventricular size is normal. Right ventricular systolic function is normal. Moderate mitral regurgitation. ++++++++++++++++++++++++++++++++++++ FINDINGS: ++++++++++++++++++++++++++++++++++++ LV: The left ventricular size is normal. The left ventricular systolic function is normal. Estimated left ventricular ejection fraction is 60-65%. There is no left ventricular hypertrophy. Left ventricular diastolic function is abnormal (grade 1 - impaired relaxation). WM: Wall motion appears normal in all segments. RV: The right ventricular size is normal. Right ventricular systolic function is normal. IVS: No evidence of ventricular septal defect. LA: The left atrial size is normal. The left atrial volume is normal ( less than 34 ml/M2). RA: Right atrial size is normal. IAS: Atrial septum is poorly visualized. ED: No evidence of pericardial effusion. AO: Aorta is normal. PA: Estimated right atrial pressure of 3 mmHg. Unable to reliably quantitate pulmonary systolic pressure. SVn: Systemic veins are normal. AV: The aortic valve is trileaflet. No evidence of aortic valve stenosis. No evidence of aortic valve regurgitation. The aortic valve not well visualized. MV: Moderate mitral regurgitation. No evidence of mitral stenosis. PV: Trace pulmonic regurgitation. No evidence of pulmonic valve stenosis. Pulmonic valve not well visualized. TV: A trace of tricuspid regurgitation. No evidence of tricuspid valve stenosis. ++++++++++++++++++++++++++++++++++++ MEASUREMENTS: ++++++++++++++++++++++++++++++++++++ DOPPLER LVOT LVOTpkPG 6 mmHg LVOTmnPG 3 mmHg LVOTpkVel 121 cm/s (70-110)+* LVOT SV 77 ml LVOT TVI 24.5 cm Pulmonary Veins PVnpkVeld 27.9 cm/s PVnVs/Vd 1.6 PVnpkVels 43.7 cm/s AV Forward Flow AV TVI 29.4 cm AV pkPG 7 mmHg AV pkVel 132 cm/s (100-170)+ Area (TVI) 2.62 cm2 (3-5)* AV mnPG 4 mmHg Area (Tj) 2.88 cm2 (3-5)* MV Forward Flow MV DeTm 238 msec MV pkE 81.6 cm/s (60-130) MV E/A 1.2 MV pkA 70.2 cm/s MV Regurg Flow MV pkPG 109 mmHg MV pkVel 522 cm/s (60-130)* PV Forward Flow PV pkVel 114 cm/s (60-90)* PV AC 132 msec PV pkPG 5 mmHg TV Forward Flow TV E/A 1.2 TV pkA 40.2 cm/s TV pkE 46.9 cm/s Lat E' Lat e 9.36 cm/s Lat E/E' Lat E/e 8.7 Med E' Med e 6.64 cm/s Med E/E' Med E/e 12.3 Aortic Valve Aortic Valve Ar 1.46 Aortic Valve Ve 0.92 PV Antegrade Flow Acceleration Sl 449 cm/s2 Right Atrium Mcintyre's Disk 20 Right Ventricle Right Ventricle 11 cm/s 2D Left Ventricle LVIDd 4.8 cm (3.6-5.2) LV ESV 21.2 ml LVIDs 3.3 cm (2.3-3.9) LV ESV 22.1 ml LngAxd 7.23 cm LVESV BP 22.5 ml LngAxd 7.73 cm LV EF 57.3 % LV EDV 49.6 ml LV EF 63.6 % LV EDV 60.7 ml LV EF BP 60.2 % LVEDV BP 56.6 ml LV SV 28.4 ml LngAxs 6.02 cm LV SV 38.6 ml LngAxs 6.69 cm LV SV BP 34.1 ml LVPW LVPWd 0.7 cm Ventricular Septum IVSd 0.7 cm Left Atrium LA a-p 3.2 cm (2.8-3.4) LA VOLBP 47.6 ml Aorta Ao Rtd 3.5 cm (zsc 2.5)* Ao Asc 3.2 cm (zsc 3)* LVOT LVOT 2 cm LVOTArea 3.14 cm2 Ratios IVS LA Biplane LAVol I BP 26.4 ml/m2 RA Single Plane Right Atrium MO 11.1 mm Right Atrium Sy 31.3 ml Right Atrium Sy 46.8 mm Right Atrium Sy 17.4 ml/m2 Right Atrium Sy 13.4 cm2 Right Ventricle Right Ventricle 35 mm Right Ventricle 30 mm Major Tarlton 71 mm MMODE TA Tricuspid Annul 25.7 mm <Electronic Signature> 03/24/2024 12:19 PM Tyler Phillips M.D. us Julian Delvalle MD ECHO Final Result from Last 3 Months Insurance [employer] Advance Directives * Full Code (Latest Code Status on File) Date Activated Date Inactivated Comments 04/05/2024 12:23 AM 04/05/2024 2:36 PM Care Teams Lap Grinder Relationship Specialty Start Date End Date Ramona Cruz MD [address] [place] [address] [address] [place] [address] PCP - General FAMILY PRACTICE 01/13/24 Julian Delvalle MD [address] [place] [address] Consulting Physician Internal Medicine Pulmonary Disease 04/05/24 Tyler Phillips MD [facility], [address] [place] [address] Consulting Physician CARDIOVASCULAR DISEASE 04/05/24
[2024-06-23 17:45] LABS: Alanine Aminotransferase 30 U/L (6-35); Alkaline Phosphatase 89 U/L (38-126); Anion Gap 12 mmol/L (4-12); Aspartate Amino Transferase 25 U/L (14-36); Bilirubin,Total 0.6 mg/dL (0.2-1.3); Blood Urea Nitrogen 16 mg/dL (7-17); Calcium 9.2 mg/dL (8.4-10.2); Carbon Dioxide 23 mmol/L (22-30); Chloride 104 mmol/L (98-107); Estimated CRCL calculation 80 ml/min; Estimated Glomerular Filt Rate > 60; Glucose 100 mg/dL (65-110); INR 0.9; Lipase 74 U/L (23-300); Partial Thromboplastin Time 25.3 Seconds (22.3-36.8); Potassium 3.8 mmol/L (3.4-5.0); Prothrombin Time 12.4 Seconds (11.1-14.7); Sodium 139 mmol/L (137-145)
[2024-06-23 17:57] LABS: Troponin I < 0.012 ng/mL (0.000-0.034)
[2024-06-23 18:04] LABS: D Dimer 0.49 ug/mL (<0.48)
[2024-06-23] MEDS: ASPIRIN 81 MG CHEWABLE TABLET 324 MG PO (19:00)
[2024-06-23] MEDS: SODIUM CHLORIDE 0.9% IV 500 ML 999 ML IV CONT (19:01)
[2024-06-23] MEDS: LORazepam (*CRX) 0.5 MG TABLET PO (21:07)
[2024-06-23 21:53] LABS: Troponin I < 0.012 ng/mL (0.000-0.034)
== END 2024-06-23 22:55 | disposition home or self-care (01) ==
PROVIDERS: Emergency Medicine; Emergency Provider Physician Assistant
DX: R07.89 Other chest pain (principal); N28.89 Other specified disorders of kidney and ureter; I10 Essential (primary) hypertension; E78.5 Hyperlipidemia, unspecified; K76.0 Fatty (change of) liver, not elsewhere classified; K44.9 Diaphragmatic hernia without obstruction or gangrene; R94.31 Abnormal electrocardiogram [ECG] [EKG]
CPT/HCPCS: 36415; 71046; 71275; 74177; 80053; 83690; 84484; 85025; 85380; 85610; 85730; 93005; 99284; A9270; J7040; Q9967